=== PATIENT | male | born 1930 | race Caucasian/White ===

== ENCOUNTER → 2016-08-31 | Outpatient (CLI) | payer OTHER, MEDICARE | LOC: SBRMNEURO 20:00 | PROVIDERS: ATTEND Physician Assistant Medical | DX: G47.39 Other sleep apnea (principal); G47.33 Obstructive sleep apnea (adult) (pediatric) ==

== ENCOUNTER 2018-09-24 18:09 | Inpatient (IN) | payer OTHER, MEDICARE ==
[2018-09-24 19:12] LABS: PLATELET COUNT 203 10^3/uL (150-400)
--- NOTE | 2018-09-24 19:15 | EDPHY ---
H & P Stated Complaint: abnormal lumbar MRI sent by [facility] Time Seen by Provider: 09/24/18 18:28 HPI/ROS: CHIEF COMPLAINT: Back pain, abnormal MRI HISTORY OF PRESENT ILLNESS: This is an 87-year-old male referred to the emergency department by his oncologist, Dr. Cedeño. Patient has a h/o prostate cancer, s/p prostatectomy. He had been receiving Lupron injections, more recently has been on Xtandi. He has been experiencing low back pain with radiation to his left leg for the past month. Physical therapy has not helped. There has been a question of a left hip metastasis based on bone scan result. MRI done today shows signs of discitis, osteomyelitis, and psoas abscess-- prompting referral to ED. Patient denies trauma, fever, new weakness, new numbness, bowel or bladder problems. REVIEW OF SYSTEMS: A ten system review of systems was performed and is negative with the exception of the items mentioned in the HPI. Past medical history: 1. Prostate cancer 2. Melanoma 3. CHF with EF 60-65% 4. Htn 5. Hyperlipidemia 6. TISHA 7. Gout Past surgical history: 1. Prostatectomy 2. Left leg surgery for infection 3. T & A 4. Skin cancer surgery Family history: Noncontributory Social history: Here with family. Indepent in ADLs. Former smoker, quit years ago. Drinks one martini daily. General Appearance: Alert. Vital signs reviewed. Eyes: Pupils equal and round, no conjunctival injection, no discharge. Anicteric. ENT, Mouth: Mucous membranes are moist, no oropharyngeal erythema or edema. Neck: No lymphadenopathy, supple. Respiratory: Lungs are clear to auscultation; no wheezes, rales, or rhonchi. Cardiovascular: Regular rate and rhythm; no murmur, rub, or gallop. Gastrointestinal: Abdomen is soft and nontender, no masses or organomegaly, bowel sounds normal. Skin: Warm and dry, no rashes on exposed skin, normal color. Back: Nontender to palpation over the thoracolumbar spine. No CVAT. Extremities: No lower extremity edema, no calf tenderness or swelling. Neurological: Alert and oriented. Moving all four extremities easily and equally. Strength is 5 over 5 bilaterally with testing of all major motor groups. Sensation is intact to light touch over all 4 extremities. Deep tendon reflexes are 2+ in the biceps and knees bilaterally. Psychiatric: Normal affect. - Personal History Current Tetanus/Diphtheria Vaccine: Yes Current Tetanus Diphtheria and Acellular Pertussis (TDAP): Yes - Medical/Surgical History Hx Asthma: No Hx Chronic Respiratory Disease: No Hx Diabetes: No Hx Cardiac Disease: Yes Hx Renal Disease: No Hx Cirrhosis: No Hx Alcoholism: No Hx HIV/AIDS: No Hx Splenectomy or Spleen Trauma: No Other PMH: HTN, HIGH CHOLESTROL, CARDIAC STENT, PROSTATE CA SURG, GOUT, TONSILECTOMY, HERNIA - Social History Smoking Status: Former smoker Constitutional: Initial Vital Signs Temperature (C) 36.8 C 09/24/18 18:18 Heart Rate 73 09/24/18 18:18 Respiratory Rate 16 09/24/18 18:18 Blood Pressure 162/108 H 09/24/18 18:18 O2 Sat (%) 92 09/24/18 18:18 O2 Delivery Mode Room Air Allergies/Adverse Reactions: No Known Allergies Allergy (Verified 09/24/18 18:16) Home Medications: Medication Instructions Recorded Aspirin [Aspir 81] 81 mg PO DAILY 07/24/12 Atorvastatin Calcium [Lipitor 20 20 mg PO HS 09/24/18 mg (*)] Doxazosin Mesylate 2 mg PO HS 09/24/18 Furosemide [Lasix 20 MG (*)] 20 mg PO DAILY 09/24/18 Irbesartan [Avapro] 300 mg PO DAILY 09/24/18 Metoprolol Tartrate [Lopressor 50 50 mg PO BID 09/24/18 mg (*)] Spironolactone [Aldactone 25 MG 25 mg PO DAILY 09/24/18 (*)] Verapamil ER [Calan SR/ER 180MG 180 mg PO BID 09/24/18 (*)] Xtandi 160 mg PO DAILY 09/24/18 Medical Decision Making ED Course/Re-evaluation: Patient's lumbar MRI done at [facility]. I spoke with , neurosurgery. He was able to view the outside films. He recommends biopsy/drainage of psoas abscess--no neurosurgical intervention. Initially, it was thought that patient might have matastatic disease causing his back pain and radicular symptoms; however, this appears to be an infectious problem. Unclear why this patient would have discitis/abscess. He will be admitted to hospitalist service. IR to be consulted for abscess drainage, culture and gram stain. Will hold off on antibiotics for now--patient without fever or overt signs of infection. Antibiotic choice can hopefully be guided by results of gram stain/culture. Hospitalist service will consult ID and IR. Patient's radicular pain not a current concern. As long as he avoids certain positions and movements, he is comfortable. He was initially hypertensive--has not had today's antihypertensive medications. Differential Diagnosis: Back pain including but not limited to infection, malignancy/spinal cord compression, muscular pain, herniated disc, spine fracture, intra-abdominal causes and urinary tract infection. - Data Points Laboratory Results: Laboratory Results 09/24/18 19:00 09/24/18 19:00 Medications Given: Hydrocodone Bitart/Acetaminophen ([place] 5/325) 1 - 2 tab PO Q4HRS PRN PRN Reason: Pain, Moderate Able to Take PO Stop: 10/04/18 19:50 Last Admin: 09/29/18 07:52 Dose: 2 tab Atorvastatin Calcium (Lipitor) 20 mg PO HS SERGIO Stop: 03/24/19 20:59 Last Admin: 09/28/18 21:29 Dose: 20 mg Diphenhydramine HCl (Benadryl) 25 - 50 mg PO Q6HRS PRN PRN Reason: Itching Stop: 03/27/19 11:39 Last Admin: 09/29/18 01:56 Dose: 25 mg Doxazosin Mesylate (Cardura) 2 mg PO HS SERGIO Stop: 03/23/19 22:29 Last Admin: 09/28/18 21:30 Dose: 2 mg Furosemide (Lasix) 20 mg PO DAILY SERGIO Stop: 03/24/19 08:59 Last Admin: 09/29/18 07:54 Dose: 20 mg Cefepime HCl 2 gm/ Sodium (Chloride) 100 mls @ 200 mls/hr IV Q12HRS SERGIO PRN Reason: Protocol Stop: 10/28/18 15:59 Last Admin: 09/29/18 08:36 Dose: 100 mls Irbesartan (Avapro) 300 mg PO DAILY SERGIO Stop: 03/24/19 08:59 Last Admin: 09/29/18 07:54 Dose: 300 mg Methocarbamol (Robaxin) 750 mg PO QID PRN PRN Reason: Spasms Stop: 03/27/19 11:39 Last Admin: 09/29/18 07:49 Dose: 750 mg Metoprolol Tartrate (Lopressor) 50 mg PO BID SERGIO Stop: 03/23/19 21:59 Last Admin: 09/29/18 07:55 Dose: 50 mg Miscellaneous Medication (Xtandi) 160 mg PO DAILY SERGIO Stop: 03/24/19 08:59 Last Admin: 09/29/18 10:42 Dose: 160 mg Miscellaneous Medication (Non-Formulary) 1 ea PO DAILY AT 6PM SERGIO Stop: 03/24/19 17:59 Last Admin: 09/28/18 21:32 Dose: Not Given Ondansetron HCl (Zofran) 4 mg IVP Q4HRS PRN PRN Reason: Nausea/Vomiting, Can't Take PO Stop: 03/23/19 19:50 Last Admin: 09/29/18 08:02 Dose: 4 mg Ondansetron HCl (Zofran Odt) 4 mg PO Q4HRS PRN PRN Reason: Nausea/Vomiting, Use 1st Stop: 03/23/19 19:50 Last Admin: 09/29/18 03:33 Dose: 4 mg Oxycodone HCl (Oxycodone Ir) 5 - 10 mg PO Q3HRS PRN PRN Reason: Pain, Severe Able to Take PO Stop: 10/04/18 19:50 Last Admin: 09/29/18 01:08 Dose: 5 mg Senna/Docusate Sodium (Senokot-S) 1 - 2 tab PO BID SERGIO PRN Reason: Protocol Stop: 03/27/19 20:59 Last Admin: 09/29/18 07:54 Dose: 2 tab Spironolactone (Aldactone) 25 mg PO DAILY SERGIO Stop: 03/24/19 08:59 Last Admin: 09/29/18 07:55 Dose: 25 mg Verapamil HCl (Calan Sr) 180 mg PO BID [facility] Stop: 03/23/19 21:59 Last Admin: 09/29/18 07:54 Dose: 180 mg Discontinued Medications Bacitracin (Bacitracin Syringe) Confirm Administered Dose 100,000 units IRR .STK -MED ONE Stop: 09/28/18 06:58 Last Admin: 09/28/18 07:00 Dose: 100,000 units Bupivacaine HCl (Sensorcaine 0.25% Sdv) Confirm Administered Dose 60 ml .ROUTE .STK-MED ONE Stop: 09/28/18 06:58 Last Admin: 09/28/18 07:00 Dose: 40 ml Cefazolin Sodium (Ancef) Confirm Administered Dose 1 gm .ROUTE .STK-MED ONE Stop: 09/28/18 07:43 Last Admin: 09/28/18 09:36 Dose: 1 gm Cefazolin Sodium (Ancef) Confirm Administered Dose 1 gm .ROUTE .STK-MED ONE Stop: 09/28/18 07:43 Last Admin: 09/28/18 09:36 Dose: 1 gm Chlorhexidine Gluconate (Hibiclens) Confirm Administered Dose 1 btl TP .STK-MED ONE Stop: 09/28/18 06:57 Last Admin: 09/28/18 07:00 Dose: 1 btl Epinephrine HCl (Epinephrine) Confirm Administered Dose 1 mg .ROUTE .STK-MED ONE Stop: 09/28/18 06:58 Last Admin: 09/28/18 07:00 Dose: 0.3 mg Fentanyl (Sublimaze) 0 mcg IVP ONCALL PRN PRN Reason: Per provider during procedure Stop: 09/25/18 16:10 Last Admin: 09/25/18 16:41 Dose: 100 mcg Fibrinogen/Thrombin (Surgiflo Matrix Kit With Thrombin) Confirm Administered Dose 8 ml TP .STK-MED ONE Stop: 09/28/18 06:57 Last Admin: 09/28/18 09:17 Dose: 8 ml Fibrinogen/Thrombin (Surgiflo Matrix Kit With Thrombin) Confirm Administered Dose 8 ml TP .STK-MED ONE Stop: 09/28/18 09:59 Last Admin: 09/28/18 10:11 Dose: Not Given Fibrinogen/Thrombin (Surgiflo Matrix Kit With Thrombin) Confirm Administered Dose 8 ml TP .STK-MED ONE Stop: 09/28/18 10:02 Last Admin: 09/28/18 10:11 Dose: 8 ml Lactated Ringer's (Lr) 1,000 mls @ 0 mls/hr IV ONCE ONE PRN Reason: Per Protocol Stop: 09/28/18 06:24 Last Admin: 09/28/18 14:40 Dose: Not Given Cefazolin Sodium/Dextrose (Ancef) 100 mls @ 200 mls/hr IV Q8H SERGIO Stop: 10/28/18 15:29 Last Admin: 09/28/18 17:04 Dose: Not Given Methylprednisolone Acetate (Depo-Medrol) Confirm Administered Dose 40 mg .ROUTE .STK-MED ONE Stop: 09/28/18 06:58 Last Admin: 09/28/18 10:11 Dose: Not Given Midazolam HCl (Versed) 0 mg IVP ONCALL PRN PRN Reason: Per provider during procedure Stop: 09/25/18 16:10 Last Admin: 09/25/18 16:41 Dose: 0.5 mg Potassium Chloride (Klor-Con) 20 meq PO ONCE ONE Stop: 09/26/18 08:45 Last Admin: 09/26/18 10:13 Dose: 20 meq Thrombin (Thrombin-Jmi) Confirm Administered Dose 5,000 unit TP .STK-MED ONE Stop: 09/28/18 06:58 Last Admin: 09/28/18 07:00 Dose: 5,000 unit Departure - Departure Disposition: [facility] Inpatient Acute Clinical Impression: Psoas abscess Diskitis Qualifiers: Spinal region: lumbar Qualified Code(s): M46.46 - Discitis, unspecified, lumbar region Condition: Fair
[2018-09-24] MEDS ORDERED: HYDROmorphONE/DILAUDID 1 MG/ML INJ IVP PRN (19:51)
[2018-09-24] MEDS ORDERED: ACETAMINOPHEN 325 MG TAB PO PRN (19:51)
[2018-09-24] MEDS ORDERED: ONDANSETRON 4 MG/2 ML VIAL IVP PRN (19:51)
[2018-09-24] MEDS ORDERED: oxyCODONE IR 5 MG TAB PO PRN (19:51)
[2018-09-24] MEDS ORDERED: ONDANSETRON DISINTEGRATING 4 MG TAB PO PRN (19:51)
[2018-09-24] MEDS ORDERED: PROMETHAZINE HCL 25 MG/ML INJ IVP PRN (19:51)
--- NOTE | 2018-09-24 21:57 | PDGENHP ---
History and Physical - Chief Complaint leg/back pain - History of Present Illness 87 yo M with PMH of prostate cancer s/p prostatectomy presenting at the recommendation of his oncologist for further evaluation of abnormal MRI. Patient has been dealing with low back pain with radiation to his left leg for around the last month. He had been undergoing PT without much change in his symptoms and more recently had an MRI ordered by Dr. Cedeño his oncologist to rule out possible metastatic disease. This came back concerning for diskitis, osteomyelitis and psoas abscess and oncology recommended he come to the ER for further evaluation. Neurosurgery was consulted by ER and was able to review the outside films and recommended abscess drainage and culture prior to initiation of antibiotics and did not feel that surgery was required at this point. Patient notes that other than pain he has no other symptoms-specifically denies fever or chills, no numbness or weakness, no loss of bowel or bladder function. He did have surgery in his left lower leg approximately two years ago that was complicated by post operative infection but no recent infections or other changes in his health prior to this. History Information - Allergies/Home Medication List Allergies/Adverse Reactions: No Known Allergies Allergy (Verified 09/24/18 18:16) Home Medications: Aspirin [Aspir 81] 81 mg PO DAILY 07/24/12 [Last Taken 09/24/18] Atorvastatin Calcium [Lipitor 20 mg (*)] 20 mg PO HS 09/24/18 [Last Taken ] Doxazosin Mesylate 2 mg PO HS 09/24/18 [Last Taken 09/23/18] Furosemide [Lasix 20 MG (*)] 20 mg PO DAILY 09/24/18 [Last Taken 09/24/18] Irbesartan [Avapro] 300 mg PO DAILY 09/24/18 [Last Taken 09/24/18] Metoprolol Tartrate [Lopressor 50 mg (*)] 50 mg PO BID 09/24/18 [Last Taken 06/04] Spironolactone [Aldactone 25 MG (*)] 25 mg PO DAILY 09/24/18 [Last Taken ] Verapamil ER [Calan SR/ER 180MG (*)] 180 mg PO BID 09/24/18 [Last Taken 09/24/18 ] Xtandi 160 mg PO DAILY 09/24/18 [Last Taken 09/24/18] I have personally reviewed and updated: family history, medical history, social history, surgical history - Past Medical History coronary artery disease, cancer (prostate cancer, melanoma), CHF (EF of 60-65%) , hypertension, hyperlipidemia Additional medical history: moderate to severe pulmonary htn. TISHA--compliant with cpap. moderate TR. gout - Surgical History Reports: cancer surgery (prostatectomy) Additional surgical history: leg surgery. skin surgery. tonsillectomy - Family History Positive for: non-pertinent - Social History Smoking Status: Former smoker Alcohol Use: Other (daily martini) Drug Use: None Additional social history: lives independently Review of Systems Review of Systems: ROS: 10pt was reviewed & negative except for what was stated in HPI & below Physical Exam Physical Exam: Temp Pulse Resp BP Pulse Ox 36.9 C 75 19 200/97 H 92 09/24/18 20:29 09/24/18 20:29 09/24/18 20:29 09/24/18 20:29 09/24/18 20:29 Constitutional: no apparent distress, obese Eyes: PERRL, anicteric sclera Ears, Nose, Mouth, Throat: moist mucous membranes, hearing normal Cardiovascular: regular rate and rhythym, no murmur, rub, or gallop, edema Respiratory: no respiratory distress, no rales or rhonchi Gastrointestinal: normoactive bowel sounds, soft, non-tender abdomen Genitourinary: no bladder tenderness Skin: warm, normal color Musculoskeletal: full muscle strength, No asymmetric calves Neurologic: AAOx3 Psychiatric: interacting appropriately, not anxious, not encephalopathic Lab Data & Imaging Review 09/24/18 19:00 09/24/18 19:00 WBC 7.68 10^3/uL (3.80-9.50) 09/24/18 19:00 RBC 3.67 10^6/uL (4.40-6.38) L 09/24/18 19:00 Hgb 11.7 g/dL (13.7-17.5) L 09/24/18 19:00 Hct 34.1 % (40.0-51.0) L 09/24/18 19:00 MCV 92.9 fL (81.5-99.8) 09/24/18 19:00 MCH 31.9 pg (27.9-34.1) 09/24/18 19:00 MCHC 34.3 g/dL (32.4-36.7) 09/24/18 19:00 RDW 13.5 % (11.5-15.2) 09/24/18 19:00 Plt Count 203 10^3/uL (150-400) 09/24/18 19:00 MPV 10.3 fL (8.7-11.7) 09/24/18 19:00 Neut % (Auto) 68.9 % (39.3-74.2) 09/24/18 19:00 Lymph % (Auto) 18.0 % (15.0-45.0) 09/24/18 19:00 Robertson % (Auto) 8.9 % (4.5-13.0) 09/24/18 19:00 Eos % (Auto) 3.3 % (0.6-7.6) 09/24/18 19:00 Baso % (Auto) 0.5 % (0.3-1.7) 09/24/18 19:00 Nucleat RBC Rel Count 0.0 % (0.0-0.2) 09/24/18 19:00 Absolute Neuts (auto) 5.30 10^3/uL (1.70-6.50) 09/24/18 19:00 Absolute Lymphs (auto) 1.38 10^3/uL (1.00-3.00) 09/24/18 19:00 Absolute Monos (auto) 0.68 10^3/uL (0.30-0.80) 09/24/18 19:00 Absolute Eos (auto) 0.25 10^3/uL (0.03-0.40) 09/24/18 19:00 Absolute Basos (auto) 0.04 10^3/uL (0.02-0.10) 09/24/18 19:00 Absolute Nucleated RBC 0.00 10^3/uL (0-0.01) 09/24/18 19:00 Immature Gran % 0.4 % (0.0-1.1) 09/24/18 19:00 Immature Gran # 0.03 10^3/uL (0.00-0.10) 09/24/18 19:00 ESR 12 MM/HR (0-20) 09/24/18 19:00 Sodium 135 mEq/L (135-145) 09/24/18 19:00 Potassium 3.4 mEq/L (3.5-5.2) L 09/24/18 19:00 Chloride 105 mEq/L (97-110) 09/24/18 19:00 Carbon Dioxide 24 mEq/l (22-31) 09/24/18 19:00 Anion Gap 6 mEq/L (6-14) 09/24/18 19:00 BUN 16 mg/dL (7-23) 09/24/18 19:00 Creatinine 0.5 mg/dL (0.7-1.3) L 09/24/18 19:00 Estimated GFR > 60 09/24/18 19:00 Glucose 100 mg/dL (70-100) 09/24/18:00 Calcium 9.1 mg/dL (8.5-10.4) 09/24/18 19:00 C-Reactive Protein 9.4 mg/L (<10.0) 09/24/18 19:00 Assessment & Plan Assessment: Diskitis (Acute) 87 yo M with PMH of CAD, prostate cancer presenting with leg/back pain and found to have diskitis, osteomyelitis of lumbar spine as well as psoas abscess # lumbar diskitis/osteomyelitis/psoas abscess: appreciate Dr. Cunha of [facility] [place] input, does not feel that surgery is currently indicated, will plan to have IR drain psoas abscess for gram stain and culture. Patient is HD stable, non toxic appearing and not septic, so ok to hold off on abx pending obtaining cultures for now. Will get echo as unclear etiology for developing diskitis, ID consulted for am. # radicular pain: 2/2 above, pain is relatively well controlled other than with particular movements, pt/ot to be involved # prostate cancer: with initial concerns that this represented metastatic disease which is not the case, patient s/p prostatectomy and lupron and now on xtandi, followed by Dr. Cedeño # CAD: without c/o chest pain, will get ecg and continue op medications # moderate to severe pulm htn: with underlying tisha that has been treated with cpap, patient followed by cardiology at [facility] # tisha: will resume cpap # htn: continue his op medications, bp has been high here likely due to patient not taking his medications today, will resume and monitor # chf: with preserved EF, no evidence of decompensation currently # etoh use: patient notes that he drinks a martini nightly and had concerns about being hospitalized without having that, will continue nightly martini, family to bring in # IP status, high risk, will require > 48 hours stay for eval/mgmt of above # Patient new to my care. Old records reviewed and summarized as above. Care plan reviewed with ER doctor and further hx obtained from patients family present at bedside.
[2018-09-24] MEDS ORDERED: IRBESARTAN 150 MG TAB PO SCH (22:00)
[2018-09-24] MEDS: METOPROLOL TARTRATE 50 MG TAB PO SCH (22:15)
[2018-09-24] MEDS: VERAPAMIL ER 180 MG TAB PO SCH (22:17)
[2018-09-24] MEDS: DOXAZOSIN MESYLATE 1 MG TAB PO SCH (22:48)
[2018-09-25] MEDS: HYDROCODONE/APAP 5/325 TAB PO PRN (04:42)
[2018-09-25 05:18] LABS: PLATELET COUNT 194 10^3/uL (150-400)
[2018-09-25] MEDS: METOPROLOL TARTRATE 50 MG TAB PO SCH ×2 (08:04→20:44)
[2018-09-25] MEDS: IRBESARTAN 150 MG TAB PO SCH (08:07)
[2018-09-25] MEDS: SPIRONOLACTONE 25 MG TAB PO SCH (08:08)
[2018-09-25] MEDS: FUROSEMIDE 20 MG TAB PO SCH (08:08)
--- NOTE | 2018-09-25 09:51 | PDMN ---
Medical Necessity Medical necessity: Pt meets IP criteria per MD & MCG M-600; est los >2 mn for osteomyelitis of lumbar spine, psoas abscess & lumbar diskitis; requiring further workup/monitoring, IR consult w/abscess drainage & ID consult; comorbid advanced age, prostate cancer s/p prostatectomy, pulmonary htn, CAD, CHF; per order & H&P 09/24/18
[2018-09-25] MEDS: VERAPAMIL ER 180 MG TAB PO SCH ×2 (10:59→20:45)
--- NOTE | 2018-09-25 11:50 | ASMTCMCOM ---
CM Note CM Note Notes: Pt is a 87 y/o man admitted for leg and back pain. Pt has prostate cancer and currently getting radiation on his left leg last month. Therapies have been ordered and awaiting recommendations. Needs are TBD at this time. ID is consulting. CM to follow. Plan: TBD Date Signed: 09/25/2018 11:48 AM Electronically Signed By:KISHOR Berman
--- NOTE | 2018-09-25 12:26 | GCON ---
[f rep st] CONSULTATION INPATIENT ONCOLOGY CONSULTATION DATE OF CONSULTATION: 09/25/2018 REFERRING PHYSICIAN: Sophia Stern MD OUTPATIENT ONCOLOGIST: Noel Cedeño MD. REASON FOR CONSULTATION: History of metastatic prostate cancer. HISTORY OF PRESENT ILLNESS: The patient is an 87-year-old man with a history of prostate cancer. He has received care elsewhere in the past and only recently established oncologic care with our practi . He apparently was diagnosed in 1991 and was treated with a radical prostatectomy followed by rad iation therapy. Around that time, his PSA began to rise, and he was started on Lupron. It sounds li ke he has been on and off Lupron since that time for several decades. A year or two ago, he was star елена on enzalutamide for a rising PSA. Most recently, his PSA was 5.9. In July 2016, it was 3.7. A bone scan several months ago showed potential uptake at T4 and T5 without a CT correlate. The patient has been complaining of some left hip and thigh pain. Dr. Cedeño got an MRI. This did no t show evidence of metastatic disease, but did show what appeared to be diskitis, osteomyelitis, and a potential left psoas abscess. The patient was admitted for further management. He is scheduled fo r an IR-guided drainage. He denies fevers or chills. PAST MEDICAL HISTORY: 1. Prostate cancer as noted above. 2. Coronary artery disease. 3. Hypertension. CURRENT MEDICATIONS: Include [place], Lipitor, Cardura, Lasix, Avapro, Lopressor, spironolactone, and verapamil. ALLERGIES: He has no known drug allergies. FAMILY HISTORY: Noncontributory. SOCIAL HISTORY: Nonsmoker and nondrinker. REVIEW OF SYSTEMS: Other than pertinent positives mentioned in HPI, a 14-point review of systems is negative. PHYSICAL EXAMINATION: VITAL SIGNS: His temperature was 36.4, blood pressure 163/90, heart rate 59, and oxygen saturation 98% on room air. GENERAL: He was an elderly man in no acute distress. HEENT: Sclerae anicteric. Oropharynx was clear. NECK: Supple without lymphadenopathy. LUNGS: Clear to auscultation bilaterally. CARDIAC: Regular rate and rhythm. No murmurs, gallops, or rubs. ABDOME N: Normoactive bowel sounds. Nontender and nondistended. EXTREMITIES: Without edema. NEUROLOGICA L: He was alert and oriented x3. Strength and sensation were intact. Gait was not tested. LABORATORY DATA: White count 6.82, hemoglobin 11, and platelets 194. Basic metabolic panel was norm al. IMPRESSION: This is an 87-year-old man with a history of prostate cancer. He does not appear to hav e any overt evidence of metastatic disease and I think would essentially be considered to have a PSA only recurrence. He is now admitted with a separate problem, what appears to be a psoas abscess. RECOMMENDATIONS: 1. Continue with management of the abscess as you are. This is very unlikely to be related to his c ancer or its treatment. 2. Reasonable to hold the enzalutamide while he is in the hospital, though, if it is continued, this should not interfere with his other treatment. 3. Once his issues resolve, we can discuss resuming the enzalutamide or other aspects of his oncolog ic care. /[id number]/MODL
--- NOTE | 2018-09-25 12:28 | HOSPPROG ---
Hospitalist Progress Note Assessment/Plan: 87 yo M with PMH of CAD, prostate cancer presenting with leg/back pain and found to have diskitis, osteomyelitis of lumbar spine. First encounter, chart reviewed. D/W Dr David. # lumbar diskitis/osteomyelitis: -no drainable abscess -appreciate Dr. Cunha of [facility] [place] input -no surgery is currently indicated -will plan to have IR sample disk space - appreciate ID consult -hold off on abx pending culture -Will get echo as unclear etiology for developing diskitis # radicular pain: -2/2 above, -pain is relatively well controlled other than with particular movements, -pt/ot to be involved # prostate cancer: -not metastatic disease -patient s/p prostatectomy and lupron and now on xtandi, -followed by Dr. Cedeño # CAD: without c/o chest pain # moderate to severe pulm htn: with underlying bipin that has been treated with cpap, patient followed by cardiology at [facility] # bipin: will resume cpap # htn: continue his op medications -bp has been high here likely due to patient not taking his medications -will resume and monitor # chf: with preserved EF, no evidence of decompensation currently # etoh use: -patient notes that he drinks a martini nightly and had concerns about being hospitalized without having that, -will continue nightly martini, family to bring in # IP status, high risk, will require > 48 hours stay for eval/mgmt of above Subjective: Feeling ok. Up at edge of bed. Some pain. Objective: Vital Signs Temp Pulse Resp BP Pulse Ox 36.4 C 59 L 18 163/90 H 98 09/25/18 11:46 09/25/18 11:46 09/25/18 11:46 09/25/18 11:46 09/25/18 11:46 Laboratory Results 09/25/18 04:19 09/25/18 04:19 - Physical Exam Constitutional: no apparent distress, appears nourished, No cachectic Eyes: PERRL, anicteric sclera, EOMI Ears, Nose, Mouth, Throat: moist mucous membranes, hearing normal, ears appear normal Cardiovascular: regular rate and rhythym, No JVD, No edema Respiratory: no respiratory distress, no rales or rhonchi, reduced air movement Gastrointestinal: normoactive bowel sounds, No tenderness, No ascites Skin: warm, normal color, No mottled Musculoskeletal: no joint effusions, pain with ROM, generalized weakness Neurologic: AAOx3 Psychiatric: interacting appropriately, not anxious, not encephalopathic, thought process linear ICD10 Worksheet Patient Problems: Problems Problem Status Onset Diskitis Acute
[2018-09-25 13:17] LABS: INR 0.98 (0.83-1.16); PROTIME(PATIENT) 12.6 SEC (12.0-15.0)
--- NOTE | 2018-09-25 14:16 | GCON ---
[f rep st] CONSULTATION DATE OF CONSULTATION: 09/25/2018 CHIEF COMPLAINT: Low back and left leg pain. REASON FOR CONSULTATION: Osteomyelitis/diskitis at L3-4 and left psoas muscle abscess. HISTORY OF PRESENT ILLNESS: The patient is an 87-year-old gentleman who has a past medical history of prostate cancer who has been having low back and left leg pain. His daughter is at the bedside today. He states he had first onset of back pain with radiation down the back of his left leg approximately 2 months ago. His primary care doctor diagnosed this as sciatica and had been treating it with nonsteroidal antiinflammatory medications and muscle relaxants. The pain did resolve; however, it returned again approximately 1 month ago. Since that time, he has continued taking NSAIDs and muscle relaxants , using CBD oil, and has also been participating in a physical therapy program; however, his pain has not been improving. He also had a bone scan recently that was suspicious for tumor in the T11 and L1 vertebral bodies and in the sacrum. For these reasons, his oncologist ordered an MRI scan of his spine, and this demonstrated suspicion of infection at L3-4 and left psoas abscess. He describes the pain as a knot in the left sided low back and buttock that radiates down the lateral and anterior thigh to the knee. He said it rarely radiates below the knee. He denies any numb, tingling, or other sensory changes in his left leg. He denies outright weakness or his leg giving out or falls, but he does have some fear that his leg will give out on him and cause him to fall. He denies any bowel or bladder symptoms or any symptoms in his right leg. He also denies any fevers, chills, sweats, or malaise. PAST MEDICAL HISTORY: 1. Coronary artery disease. 2. Prostate cancer. 3. Melanoma. 4. Chronic heart failure with ejection fraction of 60% to 65%. 5. Hypertension. 6. Hyperlipidemia. 7. Obstructive sleep apnea. 8. Gout. PAST SURGICAL HISTORY: 1. Prostatectomy. 2. Skin cancer surgery. 3. Tonsillectomy. 4. Left ankle fracture surgery. FAMILY HISTORY: There is no family history of neurologic disease. SOCIAL HISTORY: Patient is a former smoker, but denies any current tobacco use. He uses alcohol on a daily basis, usually one drink per day. He denies any recreational drug use. He lives independently in [place], [place]. He is a retired automotive hardware engineer. He enjoys playing golf. OUTPATIENT MEDICATIONS: 1. Aspirin 81 mg p.o. daily. 2. Lipitor 20 mg p.o. daily. 3. Doxazosin 2 mg p.o. daily. 4. Lasix 20 mg p.o. daily. 5. Avapro 300 mg p.o. daily. 6. Metoprolol 50 mg p.o. b.i.d. 7. Spironolactone 25 mg p.o. daily. 8. Verapamil ER 180 mg p.o. b.i.d. 9. Xtandi 160 mg p.o. daily. ALLERGIES: No known drug allergies. REVIEW OF SYSTEMS: GENERAL: Patient denies any malaise or any change from his recent health. HEAD, EYES, EARS, NOSE AND THROAT: He denies any headaches, vision changes, rhinorrhea or epistaxis, hearing loss, tinnitus, difficulty swallowing, or dry mouth. PULMONARY: He denies any shortness of breath or wheezing. CARDIOVASCULAR: He denies any chest pain, dyspnea on exertion, or swelling in his extremities. GI: He denies any nausea, vomiting, diarrhea, or constipation. GENITOURINARY: He denies any dysuria or incontinence. HEMATOLOGIC: He denies any history of easy bruising or bleeding. IMMUNOLOGIC: He denies any fevers, chills, night sweats. MUSCULOSKELETAL: He denies any chronic pain symptoms. ENDOCRINOLOGIC: He denies any excessive thirst or urination or any temperature intolerance. NEUROLOGIC: As in History of Present Illness. PSYCHIATRIC: He denies any history of depression or anxiety. PHYSICAL EXAMINATION: GENERAL: He is a well-developed man who appears his recorded age. He has central obesity. He is in no acute distress. HEAD: Normocephalic, atraumatic. EYES: His conjunctivae are clear and sclerae are nonicteric. EARS: His hearing is grossly intact. He has no otorrhea. NOSE, MOUTH, THROAT: Mucous membranes are moist. Dentition is grossly intact. CARDIOVASCULAR: He has a regular rate and rhythm. He has no peripheral edema. RESPIRATORY: He has normal work of breathing and symmetric chest wall excursions. ABDOMEN: Soft, nontender, and nondistended. SKIN: Warm and has normal turgor. MUSCULOSKELETAL: He has no outward signs of trauma or deformity. He is able to move all extremities. NEUROLOGIC: He is asleep but easily arousable and then awake, alert, and oriented x4. His speech is fluent, and he follows commands without difficulty. CRANIAL NERVES: Pupils are equal, round, and reactive to light. Extraocular muscle movements are intact. Facial sensation and movements are full and intact. Hearing is grossly intact. He has no dysarthria. Palate elevates symmetrically. Bilateral shoulder shrug is full, symmetric strength, and tongue protrudes in the midline. STRENGTH: He has 5/5 strength in all muscle groups in both arms and both legs, including bilateral deltoids, biceps, triceps, wrist extensors, interossei, bending machine set up operator, hip flexors, knee extensors, knee flexors, ankle dorsiflexors, ankle plantarflexors , and extensor hallucis longus. SENSATION: Grossly intact to light touch throughout the body. REFLEXES: 1/4 in right patella, trace in left patella; absent in bilateral Achilles. He has negative Mijares sign and no clonus at the ankles. COORDINATION: He has no tremors or abnormal movements. PSYCHIATRIC: He has appropriate affect. LABORATORY DATA: He has had basic metabolic panel and CBC performed this morning. These are notable for mild anemia with a hemoglobin 11.0 and hematocrit 32.0, and mildly low potassium at 3.1. Otherwise, all other values are within normal range. He had a C-reactive protein and ESR drawn yesterday. These values were 9.4 and 12, respectively. IMAGING: As stated, patient had an MRI of the lumbar spine with and without contrast done at an outside hospital. This demonstrates contrast enhancement in the L3-4 disk space extending into the adjacent vertebral bodies. He also has enhancing material in the medial left psoas muscle. In addition to these findings suspicious for infection, he has degenerative stenosis with ligamentum flavum hypertrophy, worst at L3-4, but also moderately severe at L2-3. There are likely metastatic lesions within the T11 and L1 vertebral bodies consistent with the bone scan findings. There are no visible lesions or tumors within the sacrum. ASSESSMENT AND PLAN: The patient is an 87-year-old man who has no chronic low back complaints, who has now had low back pain with radicular symptoms for the past two months. There are no concerning findings on neurological examination, including no evidence of weakness or sensory loss. Imaging demonstrates evidence of L3-4 diskitis and abscess in the left psoas muscle, but also demonstrates what is likely a chronic degenerative spinal canal stenosis at L3- 4 and L2-3. Given the subacute history of symptoms, I favor that the infection is more likely cause of his current symptomatology; however, the stenosis may be contributing. At this point, I would recommend treating his infection, including placing a percutaneous drain in the left psoas muscle abscess, obtaining cultures, and then starting broad-spectrum antibiotics under the direction of Infectious Diseases. Depending on his pain control, gabapentin can be considered for better pain management if necessary. Otherwise, I would just continue nonsteroidal antiinflammatory medications and muscle relaxants. I also recommend continuing physical therapy. As his infection is treated, if his symptoms are not improving, then one to two-level lumbar decompression can be considered in the future; however, at this point, given the chances that it is not symptomatic and given an active infection, no immediate surgical intervention is recommended. The plan was discussed in detail with the patient and his daughter, and they understand and agree. Neurosurgery will follow at this time. Please call with any questions. /[id number]/MODL MTDD
[2018-09-25] MEDS ORDERED: NALOXONE HCL 0.4 MG/ML INJ IVP PRN (15:09)
[2018-09-25] MEDS ORDERED: FLUMAZENIL 0.5 MG/5 ML MDV IVP PRN (15:09)
[2018-09-25] MEDS ORDERED: MIDAZOLAM 2 MG/2 ML VIAL IVP PRN (15:09)
[2018-09-25] MEDS ORDERED: fentaNYL 100 MCG/2 ML INJ IVP PRN (15:09)
[2018-09-25] MEDS ORDERED: NS 1,000 ML IV SCH (15:15)
--- NOTE | 2018-09-25 15:56 | PDPROPOC ---
Sedation Plan of Care Sedation Plan of Care: vital signs stable, mental status noted, patient educated of risks, benefits, alternatives, patient can tolerate sedation ASA Classification: ASA 3 Planned drugs: midazolam Mallampati Score: Class 2 Mallampati Reference Image: Patient passed 3-3-2 rule?: Yes
--- NOTE | 2018-09-25 15:58 | PDHPUP ---
History & Physical Update H&P update statement: This history and physical update is based on an assessment of the patient which was completed after admission or registration (within 24 hours), but prior to the surgery/procedure. Disc aspiration L3-4 and/or bone biopsy for osteomyelitis/discitis H&P update: H&P reviewed & patient examined, no change in patient's condition since H&P completed
--- NOTE | 2018-09-25 17:16 | PDRADPN ---
Radiology Procedure Note Date of Procedure: 09/25/18 Radiologist: Jagjit Farias Anesthesia: IV Sedation Pre-op Diagnosis: Osteomyelits/Discitis Post-op Diagnosis: Osteomyelits/Discitis Indication: Osteomyelits/Discitis Procedure: Disc aspiration Finding(s): L3/4 disc aspiration yielding 0.5 mL fluid, sent to micro. Inf/Abcess present in the surg proc area at time of surgery?: No EBL: Minimal
[2018-09-25] MEDS ORDERED: VODKA 50 ML BOTTLE PO SCH (18:00)
[2018-09-25] MEDS: [UNRECOGNIZED DRUG - OTHER] PO SCH (18:35)
[2018-09-25] MEDS: ATORVASTATIN CALCIUM 20 MG TAB PO SCH (20:44)
[2018-09-25] MEDS: DOXAZOSIN MESYLATE 1 MG TAB PO SCH (20:44)
[2018-09-26] MEDS: HYDROCODONE/APAP 5/325 TAB PO PRN ×3 (03:08→21:15)
--- NOTE | 2018-09-26 06:35 | GCON ---
[f rep st] CONSULTATION DATE OF CONSULTATION: 09/25/2018 REFERRING PHYSICIAN: Sophia Stern MD REASON FOR CONSULTATION: L3-L4 osteomyelitis diskitis, query evaluation. HPI: This is an 87-year-old male who describes moderately progressive back pain starting toward the end of 2018, which more recently became severe left leg pain, left greater than right, which he characterizes as 7/10. He characterizes his back pain ranging from 1-2 out of 10 to 5-6 out of 10. Patient denies any focal lower extremity weakness, but does describe that this pain keeps him from doing some of his regular activities. He denies any fevers , chills, night sweats. No bowel or bladder symptom. He denies any specific recent injuries that precipitated his back pain. PAST MEDICAL HISTORY: Includes coronary artery disease, high blood pressure, hypertension, malignant melanoma, obstructive sleep apnea, osteoarthritis, and prostate cancer, which was diagnosed in 1991 for which he underwent a prostatectomy and 30 days of radiation. Initially received intermittent Lupron , then is now receiving in enzalutamide. PAST SURGICAL HISTORY: Cataract surgery, prostatectomy, coronary stents, tonsillectomy. FAMILY HISTORY: Positive for heart disease and hypertension. ALLERGIES: NKDA. 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 He has no known TB contacts, but he has visited multiple countries over the years including [place], [place], [place], [place], and [place]. He previously smoked a cigar and pipe, quit in 1985. He drinks a nightly martini. He has 3 children, 1 is present during history and physical exam. MEDICATIONS: Multiple. He has not received antibiotics recently. He is on aspirin, Lipitor, doxazosin, Lasix, Avapro, metoprolol, spironolactone, verapamil and . REVIEW OF SYSTEMS: A complete 10-point review of systems was performed and is negative except as mentioned in the HPI. Recent dental evaluation was reportedly negative. Patient denies any tooth pain or recent procedures. PHYSICAL EXAM: VITAL SIGNS: BP 149/76, afebrile, T 36.5, HR 72, RR 16, saturation 95% on 1 L. GENERAL: This is a nontoxic-appearing elderly male, no acute distress. He is moderately obese. HEENT: Patient is conversational. No acute distress. Fair dentition. CARDIOVASCULAR: Regular rate, no murmurs. CHEST: He had normal respiratory effort. Clear to auscultation bilaterally abdomen was soft, nontender. Bowel sounds are present. No mass. SKIN: No rashes. NEUROLOGICAL: He is alert and oriented x4. Fluent speech. Cranial nerves were grossly intact. His strength was intact. Reflex exam was deferred. LABORATORY: CRP 9.4, white count 6.8, hematocrit 32, platelets 194, 67% neutrophils. ESR is 12. Creatinine 0.5. Blood cultures were collected on admission and are pending at time of dictation. MRI of the lumbar spine was personally reviewed by me and select images were reviewed with L4-L5 disk space , inflammation demonstrated by contrast enhancement with obvious and also enhancement of adjacent vertebral bodies of L4-L5 previously thought ring- enhancing abscess of the left psoas muscle appears to be related to a bony spur. This was reviewed with Radiology by me. ASSESSMENT AND PLAN: An 87-year-old male with history of malignant melanoma, prostate cancer with increasing PSA and CAD, who had radiologic abnormalities noted with workup for elevated PSA and subsequently was found to have diskitis at L4-L5 with possible adjacent osteomyelitis that could account for his back pain, as there is significant cord compression at this level as well. Agree with prior providers assessment that this clinical appearance is most suggestive of infection, less so of malignancy. Due to unclear true psoas abscess, would recommend directing aspiration to disk to obtain additional cultures, as well as continue to monitor blood cultures. Discussed potential pathogens with patient and family at bedside, including Streptococcus, Staphylococcus, and less likely more smoldering pathogens such as tuberculosis in light of his international travel, as well as many years spent in [place], coccidiomycosis is within the realm of possibilities. At this point, would obtain additional samples and not start empiric IV antibiotic therapy at this point, would await additional information. Surprisingly markers such as white blood cell count, CRP, and ESR are not elevated, but sometimes this can be the case and patients who are aging may not develop as much of an inflammatory reaction to these slowly developing infections. Thank you for this consultation. Time spent was greater than 85 minutes greater than 20% of time spent with education and counseling of the family regarding differing modalities of aspiration and differential diagnosis of pathogens and reviewed radiologic findings. /[id number]/MODL MTDD
[2018-09-26] MEDS: VERAPAMIL ER 180 MG TAB PO SCH ×2 (07:32→21:08)
[2018-09-26] MEDS: METOPROLOL TARTRATE 50 MG TAB PO SCH ×2 (07:32→21:08)
[2018-09-26] MEDS: FUROSEMIDE 20 MG TAB PO SCH (07:33)
[2018-09-26] MEDS: SPIRONOLACTONE 25 MG TAB PO SCH (07:33)
[2018-09-26] MEDS: IRBESARTAN 150 MG TAB PO SCH (07:33)
--- NOTE | 2018-09-26 08:06 | SOAPPROG ---
SOAP Progress Note Assessment/Plan: Assessment: 87 yo M with presumed L3/4 discitis and psoas muscle abscess also with lumbar stenosis at L2/3, L3/4 Plan: neuro: stable neurogenic claudication likely from lumbar stenosis from L2-4, will follow for now and hopefully will not need surgery neurologically intact, will follow for now IR aspiration of disc, cultures pending, abx per ID PT/OT will follow for now Please call with neuro changes discussed with Dr Luis 09/26/18 08:01 09/26/18 08:04 Subjective: continued back pain, leg pain with walking that improves with rest, no weakness , ataxia or bowel/bladder changes. Objective: Vital Signs Temp Pulse Resp BP Pulse Ox 36.6 C 66 17 159/76 H 94 09/26/18 07:29 09/26/18 07:29 09/26/18 07:29 09/26/18 07:29 09/26/18 07:29 Microbiology 09/25/18 17:11 Gram Stain - Final Back - Aspirate 09/25/18 17:11 Mycobacterial Smear (MELANIE) - Final Back - Aspirate Mycobacterial Culture - Final Laboratory Results 09/25/18 04:19 09/25/18 04:19 09/25/18 09/26/18 09/27/18 05:59 05:59 05:59 Intake Total 500 Balance 500 PT 12.6 SEC (12.0-15.0) 09/25/18 12:45 INR 0.98 (0.83-1.16) 09/25/18 12:45 AAOx4, +FC PERRL, EOMI, no facial droop 5/5 + light touch ICD10 Worksheet Patient Problems: Problems Problem Status Onset Diskitis Acute
--- NOTE | 2018-09-26 08:38 | HOSPPROG ---
Hospitalist Progress Note Assessment/Plan: 87 yo M with PMH of CAD, prostate cancer presenting with leg/back pain and found to have diskitis, osteomyelitis of lumbar spine. First encounter, chart reviewed. 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 Subjective: Al has some radicular pain that extends down his left leg. Objective: Vital Signs Temp Pulse Resp BP Pulse Ox 36.6 C 66 17 159/76 H 94 09/26/18 07:29 09/26/18 07:29 09/26/18 07:29 09/26/18 07:29 09/26/18 07:29 Microbiology 09/25/18 17:11 Gram Stain - Final Back - Aspirate 09/25/18 17:11 Mycobacterial Smear (MELANIE) - Final Back - Aspirate Mycobacterial Culture - Final Laboratory Results 09/25/18 04:19 09/25/18 04:19 09/25/18 09/26/18 09/27/18 05:59 05:59 05:59 Intake Total 500 Balance 500 PT 12.6 SEC (12.0-15.0) 09/25/18 12:45 INR 0.98 (0.83-1.16) 09/25/18 12:45 - Physical Exam Constitutional: no apparent distress, appears nourished Eyes: PERRL Ears, Nose, Mouth, Throat: hearing normal Cardiovascular: regular rate and rhythym Respiratory: no respiratory distress, no rales or rhonchi Gastrointestinal: normoactive bowel sounds Skin: warm Neurologic: AAOx3, sensation intact bilaterally Psychiatric: interacting appropriately ICD10 Worksheet Patient Problems: Problems Problem Status Onset Diskitis Acute
[2018-09-26] MEDS ORDERED: POTASSIUM CL 20 MEQ TAB PO ONE (08:44)
--- NOTE | 2018-09-26 10:03 | PCMIDPN ---
Assessment/Plan: #L3-L4 discitis and possible OM and with lumbar stenosis at L2/3, L3/4. No lab or historical signs of infection but radiologic fairly convincing. Await another 24h for micro maturity. --Will consider repeat imaging (last MRI 09/24) or consider surgical intervention to obtain better samples. --Continue to hold abx #History of Prostate CA w increasing PSA Subjective: patient without c/o today walking helps relieve L leg pain Objective: Vital Signs Temp Pulse Resp BP Pulse Ox 36.6 C 66 17 159/76 H 94 09/26/18 07:29 09/26/18 07:29 09/26/18 07:29 09/26/18 07:29 09/26/18 07:29 Microbiology 09/25/18 17:11 Gram Stain - Final Back - Aspirate 09/25/18 17:11 Mycobacterial Smear (MELANIE) - Final Back - Aspirate Mycobacterial Culture - Final Laboratory Results 09/25/18 04:19 09/25/18 04:19 09/25/18 09/26/18 09/27/18 05:59 05:59 05:59 Intake Total 500 200 Balance 500 200 ESR 12 MM/HR (0-20) 09/24/18 19:00 C-Reactive Protein 9.4 mg/L (<10.0) 09/24/18 19:00 - Physical Exam General Appearance: alert, no apparent distress EENT: No scleral icterus Respiratory: lungs clear, No accessory muscle use Neck: supple Cardiac/Chest: regular rate, rhythm Extremities: No pedal edema Abdomen: non-tender, soft Skin: No rash, No embolic lesions Neuro/Psych: alert, normal mood/affect, oriented x 3 - Time Spent With Patient Time Spent with Patient: greater than 25 minutes (reviewed plans as described above w patient and daughter at bedside, care coordinated w hospitalist) Time Spent with Patient: Greater than 25 minutes spent on this patients care, greater than 50% of time spent counseling, educating, and coordinating care regarding the above mentioned plan. ICD10 Worksheet Patient Problems: Problems Problem Status Onset Diskitis Acute
[2018-09-26] MEDS: [UNRECOGNIZED DRUG - OTHER] PO SCH (19:50)
[2018-09-26] MEDS: DOXAZOSIN MESYLATE 1 MG TAB PO SCH (21:07)
[2018-09-26] MEDS: ATORVASTATIN CALCIUM 20 MG TAB PO SCH (21:07)
[2018-09-27] MEDS: FUROSEMIDE 20 MG TAB PO SCH (09:00)
[2018-09-27] MEDS: SPIRONOLACTONE 25 MG TAB PO SCH (09:01)
[2018-09-27] MEDS: METOPROLOL TARTRATE 50 MG TAB PO SCH ×2 (09:03→20:48)
[2018-09-27] MEDS: IRBESARTAN 150 MG TAB PO SCH (09:04)
[2018-09-27] MEDS: VERAPAMIL ER 180 MG TAB PO SCH ×2 (09:04→20:47)
--- NOTE | 2018-09-27 10:08 | NEUSURGPN ---
Assessment/Plan: Assessment/Plan: Assessment: 87 yo M with presumed L3/4 discitis and psoas muscle abscess also with lumbar stenosis at L2/3, L3/4 Plan: neuro: stable. pain improves while walking. neurogenic claudication likely from lumbar stenosis from L2-4, IR aspiration of disc, cultures pending, but are stil negative at this point. Spoke with Dr. David and does not think at this point cultures will yield a positive result. Recommending surgery to get more bone and could also decompress with two level lami at the same time Dr. Luis to go speak with patient later this afternoon after surgical option PT/OT Please call with neuro changes discussed with Dr Luis Subjective: No changes. Continued leg/hip pain that is no better or worse. improves with walking. Continues to have no weakness, ataxia or bowel/bladder changes. Objective: NAD, VSS CN II-XII grossly intact Alert, speech fluent BLE 5/5= Sensation intact to lt touch - Physician Discussed Patient with Dr.: Other (Janelle) Neurosurgery Physical Exam - Vitals, I&O, Labs I and O 09/26/18 09/27/18 09/28/18 05:59 05:59 05:59 Intake Total 500 450 200 Balance 500 450 200 Weight 95.254 kg Intake: Oral (ml) 350 450 200 IV Infused (ml) 150 Ns 1,000 ml @ 30 mls/hr 150 IV CONT SERGIO Rx#: [id number] Other: Intake Quantity No Yes Yes Sufficient Number of Voids Toilet 2 1 1 Microbiology 09/25/18 17:11 Gram Stain - Final Back - Aspirate Vital Signs Temp Pulse Resp BP Pulse Ox 36.7 C 71 18 140/73 H 93 09/27/18 08:04 09/27/18 09:03 09/27/18 08:04 09/27/18 09:04 09/27/18 08:04 Laboratory Results 09/25/18 04:19 09/27/18 04:24 ICD10 Worksheet Patient Problems: Problems Problem Status Onset Diskitis Acute
--- NOTE | 2018-09-27 11:03 | PCMIDPN ---
Assessment/Plan: #L3-L4 discitis and possible OM and with lumbar stenosis at L2/3, L3/4. No lab or historical signs of infection but radiologic fairly convincing. Percutaneous Cx neg so far but sample small --Will consider surgical intervention to obtain better samples, appreciate Dr. Luis who will discuss w pt and family this afternoon --Continue to hold abx #History of Prostate CA w increasing PSA Microbiology 09/25/18 17:11 Back - Aspirate Gram Stain neg; Cx NGTD 09/24/18 19:40 Blood Cx (2) : NGTD Subjective: patient feeling well anxious to get out of the hospital Objective: Vital Signs Temp Pulse Resp BP Pulse Ox 36.7 C 71 18 140/73 H 93 09/27/18 08:04 09/27/18 09:03 09/27/18 08:04 09/27/18 09:04 09/27/18 08:04 Microbiology 09/25/18 17:11 Gram Stain - Final Back - Aspirate Laboratory Results 09/25/18 04:19 09/27/18 04:24 09/26/18 09/27/18 09/28/18 05:59 05:59 05:59 Intake Total 500 450 200 Balance 500 450 200 ESR 12 MM/HR (0-20) 09/24/18 19:00 C-Reactive Protein 9.4 mg/L (<10.0) 09/24/18 19:00 - Physical Exam General Appearance: alert, no apparent distress Respiratory: No accessory muscle use Skin: No rash Neuro/Psych: alert, normal mood/affect, oriented x 3, other (ambulating about the halls) - Time Spent With Patient Time Spent with Patient: greater than 35 minutes (care coordinated with Dr. Luis, Ewelina Messina [employer] MA[employer]GER) Time Spent with Patient: Greater than 35 minutes spent on this patients care, greater than 50% of time spent counseling, educating, and coordinating care regarding the above mentioned plan. ICD10 Worksheet Patient Problems: Problems Problem Status Onset Diskitis Acute
--- NOTE | 2018-09-27 11:16 | HOSPPROG ---
Hospitalist Progress Note Assessment/Plan: 87 yo M with PMH of CAD, prostate cancer presenting with leg/back pain and found to have diskitis, osteomyelitis of lumbar spine. 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 Subjective: Al continues to have pain down his left leg. Objective: Vital Signs Temp Pulse Resp BP Pulse Ox 36.7 C 71 18 140/73 H 93 09/27/18 08:04 09/27/18 09:03 09/27/18 08:04 09/27/18 09:04 09/27/18 08:04 Microbiology 09/25/18 17:11 Gram Stain - Final Back - Aspirate Laboratory Results 09/25/18 04:19 09/27/18 04:24 09/26/18 09/27/18 09/28/18 05:59 05:59 05:59 Intake Total 500 450 200 Balance 500 450 200 PT 12.6 SEC (12.0-15.0) 09/25/18 12:45 INR 0.98 (0.83-1.16) 09/25/18 12:45 - Physical Exam Constitutional: no apparent distress, appears nourished Eyes: PERRL Ears, Nose, Mouth, Throat: hearing normal Respiratory: no respiratory distress Skin: warm Musculoskeletal: generalized weakness Neurologic: AAOx3 Psychiatric: interacting appropriately ICD10 Worksheet Patient Problems: Problems Problem Status Onset Diskitis Acute
--- NOTE | 2018-09-27 14:59 | ASMTCMCOM ---
CM Note CM Note Notes: Pts case discussed w/ Ewelina Messina NP. Therapies have cleared pt to d/c without any needs. Pt will most likely require ivabx at time of d/c. Currently ivabx is currently on hold and awaiting cultures. Referral sent to [facility] and [facility]. [facility]. CM to follow. Plan: TBD Date Signed: 09/27/2018 02:58 PM Electronically Signed By:KISHOR Berman
[2018-09-27] MEDS: [UNRECOGNIZED DRUG - OTHER] PO SCH (18:11)
[2018-09-27] MEDS: ATORVASTATIN CALCIUM 20 MG TAB PO SCH (20:46)
[2018-09-27] MEDS: DOXAZOSIN MESYLATE 1 MG TAB PO SCH (20:48)
[2018-09-28] MEDS ORDERED: LR 1,000 ML IV ONE (06:23)
[2018-09-28] MEDS ORDERED: CHLORHEXIDINE GLUC HIBICLENS 118 ML BTL TP ONE (06:56)
[2018-09-28] MEDS ORDERED: SURGIFLO MATRIX KIT WITH THROMBIN 8 ML TP ONE ×3 (06:56→10:01)
--- NOTE | 2018-09-28 06:56 | PDHPUP ---
History & Physical Update H&P update statement: This history and physical update is based on an assessment of the patient which was completed after admission or registration (within 24 hours), but prior to the surgery/procedure. H&P update: H&P reviewed & patient examined, no change in patient's condition since H&P completed H&P changes: Plan L2-3 and L3-4 decompressive laminectomies and biopsy of L3-4 disc for culture. Consents signed and on chart. Surgical site marked by me. No preoperative antibiotics pending biopsy.
[2018-09-28] MEDS ORDERED: EPINEPHrine 1 MG/ML INJ ONE (06:57)
[2018-09-28] MEDS ORDERED: BACITRACIN 50,000 UNITS/10 ML SYR IRR ONE (06:57)
[2018-09-28] MEDS ORDERED: THROMBIN (BOVINE) 5,000 UNIT VIAL TP ONE (06:57)
[2018-09-28] MEDS ORDERED: BUPIVACAINE 0.25% 30 ML SDV ONE (06:57)
[2018-09-28] MEDS ORDERED: DEPO METHYLPREDNISOLONE 40 MG/ML SDV ONE (06:57)
[2018-09-28] MEDS ORDERED: ALBUTEROL 3 ML DEYVIAL IH PRN (07:05)
[2018-09-28] MEDS ORDERED: DEXAMETHASONE 4 MG/ML VIAL IVP PRN (07:05)
[2018-09-28] MEDS ORDERED: fentaNYL 100 MCG/2 ML INJ IVP PRN (07:05)
[2018-09-28] MEDS ORDERED: NALOXONE HCL 0.4 MG/ML INJ IVP PRN (07:05)
[2018-09-28] MEDS ORDERED: HYDROmorphONE/DILAUDID 2 MG/ML INJ IVP PRN (07:05)
[2018-09-28] MEDS ORDERED: oxyCODONE IR 5 MG TAB PO PRN (07:05)
[2018-09-28] MEDS ORDERED: ONDANSETRON 4 MG/2 ML VIAL IVP PRN (07:05)
--- NOTE | 2018-09-28 07:08 | PDANEPAE ---
ANE History of Present Illness L2-4 ANE Past Medical History - Cardiovascular History Hx Hypertension: Yes Hx Coronary Artery / Peripheral Vascular Disease: Yes Hx CHF / Valvular Disease: Yes - Pulmonary History Hx Oxygen in Use at Home: No Hx Sleep Apnea: Yes Sleep Apnea Screening Result - Last Documented: Positive - Endocrine History Hx Diabetes: No - Chronic Pain History Chronic Pain: Yes ANE Review of Systems Review of Systems: - Exercise capacity Exercise capacity: >=4 METS ANE Patient History - Allergies Allergies/Adverse Reactions: No Known Allergies Allergy (Verified 09/24/18 18:16) - Home Medications Home Medications: Aspirin [Aspir 81] 81 mg PO DAILY 07/24/12 [Last Taken 09/24/18] Atorvastatin Calcium [Lipitor 20 mg (*)] 20 mg PO HS 09/24/18 [Last Taken ] Doxazosin Mesylate 2 mg PO HS 09/24/18 [Last Taken 09/23/18] Furosemide [Lasix 20 MG (*)] 20 mg PO DAILY 09/24/18 [Last Taken 09/24/18] Irbesartan [Avapro] 300 mg PO DAILY 09/24/18 [Last Taken 09/24/18] Metoprolol Tartrate [Lopressor 50 mg (*)] 50 mg PO BID 09/24/18 [Last Taken 06/04] Spironolactone [Aldactone 25 MG (*)] 25 mg PO DAILY 09/24/18 [Last Taken ] Verapamil ER [Calan SR/ER 180MG (*)] 180 mg PO BID 09/24/18 [Last Taken 09/24/18 ] Xtandi 160 mg PO DAILY 09/24/18 [Last Taken 09/24/18] - NPO status NPO Since - Liquids (Date): 09/28/18 NPO Since - Liquids (Time): 00:00 NPO Since - Solids (Date): 09/28/18 NPO Since - Solids (Time): 00:00 - Smoking Hx Smoking Status: Former smoker - Alcohol Use Alcohol Use: Other (daily martini) ANE Labs/Vital Signs - Labs Result Diagrams: 09/25/18 04:19 09/27/18 04:24 - Vital Signs Blood Pressure: 164/87 Heart Rate: 77 Respiratory Rate: 17 O2 Sat (%): 95 Height: 170.18 cm Weight: 95.254 kg ANE Physical Exam - Airway Neck exam: FROM Mallampati Score: Class 2 Mouth exam: normal dental/mouth exam - Pulmonary Pulmonary: clear to auscultation - Cardiovascular Cardiovascular: regular rate and rhythym - ASA Status ASA Status: III ANE Anesthesia Plan Anesthesia Plan: general endotracheal anesthesia Total IV Anesthesia: Yes
[2018-09-28] MEDS ORDERED: ROCURONIUM 50 MG/5 ML VIAL ONE (07:10)
[2018-09-28] MEDS ORDERED: PROPOFOL 200 MG/20 ML VIAL ONE (07:10)
[2018-09-28] MEDS ORDERED: HYDROmorphONE/DILAUDID 2 MG/ML INJ ONE (07:11)
[2018-09-28] MEDS ORDERED: ceFAZolin 1 GM VIAL ONE ×2 (07:42)
[2018-09-28] MEDS ORDERED: ONDANSETRON 4 MG/2 ML VIAL ONE (09:50)
[2018-09-28] MEDS ORDERED: DEXAMETHASONE 4 MG/ML VIAL ONE (09:50)
[2018-09-28] MEDS ORDERED: RANITIDINE 50 MG/2 ML VIAL ONE (09:51)
[2018-09-28] MEDS ORDERED: MAGNESIUM HYDROXIDE 30 ML UDCUP PO PRN (11:40)
[2018-09-28] MEDS ORDERED: LACTULOSE 20 GM/30 ML UDCUP PO PRN (11:40)
[2018-09-28] MEDS ORDERED: POLYETHYLENE GLYCOL 3350 17 GM PKT PO PRN (11:40)
[2018-09-28] MEDS ORDERED: diphenhydrAMINE 25 MG CAP PO PRN (11:40)
[2018-09-28] MEDS ORDERED: BISACODYL 10 MG SUPP PR PRN (11:40)
--- NOTE | 2018-09-28 11:41 | POSTOPPROG ---
Post Op Note Date of Operation: 09/28/18 Surgeon: Jitendra Luis [employer] Supervisor: None Anesthesiologist: Abhinav Steen D.O. Anesthesia: GET(General Endotracheal), Local (Specify) Pre-op Diagnosis: L2-3 and L3-4 stenosis with radiculopathy; L3-4 osteodiscitis Post-op Diagnosis: Same Indication: Pain, potential infection Procedure: L2-3 and L3-4 decompressive laminectomies; L3-4 disc and vertebral biopsies Findings: Adequate decompression at both levels; no obvious sign of infection Inf/Abcess present in the surg proc area at time of surgery?: Yes Depth: Organ Space EBL: 50-100 Complications: None Bowel Protocol: N/A Clean Closure Performed: N/A Drains: Diaz Bey Specimen(s): 1. L3-4 disc material for cultures. 2. L4 vertebral body for cultures. 3. L3 and L4 vertebral bodies for pathology.
--- NOTE | 2018-09-28 11:56 | SOAPPROG ---
SOAP Progress Note Assessment/Plan: Assessment: He is doing well s/p L2-3 and L3-4 decompressive laminectomies and L3-4 vertebral bodies/disc biopsies Plan: - Transfer to med/surg shni - Pain management - Postop prophylactic IV Ancef x 24 hours; await cultures and will change appropriately with ID guidance - INGRID compressed, will follow output - Head of bed elevated - ADAT - Continue PT txs 09/28/18 11:53 Subjective: I saw Jaswinder in the PACU. He has not complaints currently. Objective: Vital Signs Temp Pulse Resp BP Pulse Ox 36.7 C 77 13 117/61 96 09/28/18 11:07 09/28/18 07:07 09/28/18 11:21 09/28/18 11:21 09/28/18 11:21 Microbiology 09/25/18 17:11 Gram Stain - Final Back - Aspirate Laboratory Results 09/25/18 04:19 09/27/18 04:24 09/27/18 09/28/18 09/29/18 05:59 05:59 05:59 Intake Total 014 572 9295 Output Total 50 Balance 450 200 950 PT 12.6 SEC (12.0-15.0) 09/25/18 12:45 INR 0.98 (0.83-1.16) 09/25/18 12:45 Asleep but arousable, somewhat drowsy Moves both legs with at least antigravity strength; too sleepy for individual muscle power testing SILT throughout BLE INGRID bulb compressed with sanguinous drainage ICD10 Worksheet Patient Problems: Problems Problem Status Onset Diskitis Acute
[2018-09-28] MEDS ORDERED: ceFAZolin 2 GM/DEXTROSE 100 ML IV SCH ×2 (12:30→15:30)
[2018-09-28] MEDS: VERAPAMIL ER 180 MG TAB PO SCH ×2 (14:41→21:30)
[2018-09-28] MEDS: METOPROLOL TARTRATE 50 MG TAB PO SCH ×2 (14:41→21:29)
--- NOTE | 2018-09-28 14:50 | GOP ---
[f rep st] OPERATIVE REPORT DATE OF OPERATION: 09/28/2018 PREOPERATIVE DIAGNOSES: 1. L3-4 spinal canal stenosis with radiculopathy. 2. L2-3 spinal canal stenosis. 3. Potential infection at L3-4 within the disk space and adjacent vertebral bodies. POSTOPERATIVE DIAGNOSES: 1. L3-4 spinal canal stenosis with radiculopathy. 2. L2-3 spinal canal stenosis. 3. Potential infection at L3-4 within the disk space and adjacent vertebral bodies. PROCEDURE PERFORMED: 1. Bilateral hemilaminectomies for decompression of the spinal canal with medial facetectomies and bilateral neural foraminotomies at L3-4 (CPT code 24866 ). 2. Bilateral decompressive hemilaminectomies, medial facetectomies, and bilateral neural foraminotomies at L2-3 (CPT code 90871). 3. Open biopsy of L3-4 disk and L3 and L4 vertebral bodies (CPT code 15734). SURGEON: Jitendra Luis M.D. REAR LOAD TRUCK DRIVER: None. ANESTHESIA: General endotracheal and local anesthesia. INDICATIONS: The patient is an 87-year-old gentleman who has been having low back and radiating left leg pain for approximately the past 2 months. He has been treated with nonoperative measures including nonsteroidal antiinflammatory medications, muscle relaxants, and physical therapy. He was not improving. Notably, he also has a history of prostate cancer and recently had a bone scan that showed potential bone metastases at T11 and L1. An MRI was performed, which confirmed small intervertebral tumors at those levels, but also demonstrated degenerative stenosis at L2-3 and L3-4, as well as contrast enhancement within the L3-4 disk space and adjacent vertebral bodies, namely L3 and L4. The interventional radiologist performed an aspiration of the L3-4 disk space 3 days ago, and cultures have, so far, been negative. Given the strong suspicion of infection based on the MRI, and given his symptoms, which may be, at least in part, due to stenosis, and after consultation with Infectious Disease doctor, we presented decompressive laminectomies and open biopsy for cultures to the patient. He was agreeable with this plan. DESCRIPTION OF PROCEDURE: Prior to surgery, all the indications, risks, benefits, alternatives, and expected recuperation were discussed with the patient and his daughter. Appropriate consent forms were signed. The operative site was marked by the surgeon. He was brought to the operating room where general anesthesia was induced, and he was intubated without any complications. Necessary lines and neural monitoring leads were established. He was then turned into prone position on the Iván frame. All pressure points were appropriately padded. His low back was then prepped and draped in usual sterile fashion. A time-out was done per protocol. No IV antibiotics were given due to the need for accurate cultures. A spinal needle was inserted through the skin, and fluoroscopic images were taken to localize the correct levels. Approximately 10 mL of 0.25% Marcaine with epinephrine were then injected along the planned incision for local anesthesia and vasoconstriction. An approximately 4-inch incision was then made along the midline over the posterior spine extending from L2 through L4 levels. This was carried deeper with Bovie cautery, and the lumbar fascia was opened with this device. A cerebellar retractor was used for exposure at this point. The paraspinal muscles were then dissected in a subperiosteal plan from the bilateral sides of L2, L3, and superior L4 spinous processes, and the L2 and L3 laminae. Care was taken not to disturb the facet joint capsule at these levels. Once there was adequate exposure, the cerebellar retractor was removed, and the Shadow-Line retractor was used for the remainder of the case. The bilateral laminae of L3 were then thinned with a matchstick bur on the high- speed drill to expose the underlying ligamentum flavum. The laminectomies were then completed with Kerrison rongeurs. The superior portion of the ligamentum flavum was exposed, and the ligamentum flavum was carefully from the thecal sac. The ligamentum flavum was then removed bilaterally. Bilateral medial facetectomies and neural foraminotomies were also completed with Kerrison rongeurs and foraminotomy rongeurs. Once there was adequate decompression of the spinal canal, attention was turned to taking biopsies. The thecal sac was retracted medially from the left side, and a 4 Orlando was placed within the disk space. Confirmatory radiographs were taken. The microforceps were then used to take a biopsy of the L3-4 disk space. This specimen was sent for routine bacterial, fungal, and acid-fast bacilli cultures. A bone biopsy needle was then placed within the L4 vertebral body, and 2 core biopsies were taken, one for culture as above, and also one for permanent section pathology. Once these samples were obtained, IV Ancef was given by the anesthesiologist. Attention was then turned to the L2-3 segment. The bilateral laminae of L2 were thinned with a matchstick bur on the high-speed drill as at the prior level. A bilateral decompression was then performed in the same manner as the prior level, including bilateral medial facetectomies and neural foraminotomies. Once adequate decompression of the spinal canal was achieved, the bone biopsy needle was once again used to obtain a sample in the same manner as above, this time of the L3 vertebral body, and this was sent for permanent section pathology. Final hemostasis was then obtained with the use of Surgiflo and cottonoids within the epidural space, and bipolar cautery within the paraspinal muscles. A 10-Upper Sorbian round PVC Diaz-Bey drain was placed in the subfascial space and brought out through a separate stab incision to the left inferior aspect of the incision. The wound was then irrigated thoroughly with Bacitracin- containing irrigation. Attention was turned to closure. The paraspinal muscles were reapproximated with 0 Vicryl sutures. The lumbar fascia was then closed tightly with interrupted 0-Vicryl suture. A layer of 2-0 Vicryl interrupted sutures was placed in the deep adipose, and then finally, interrupted inverted 2-0 Vicryl sutures were placed in the subcuticular layer. The drain tube was anchored to the skin with a 2-0 nylon suture, the bulb was attached, and suction was applied. Dermabond was then used on the superficial skin layer. An additional 30 mL of 0.25% Marcaine with epinephrine were injected along the incision for further local anesthesia. The drapes were then removed from the patient, and his care was returned to Anesthesia to evaluate for extubation. Notably all counts were correct x2 at the end of the case. Also, there were no changes on somatosensory evoked potential monitoring. ESTIMATED BLOOD LOSS: 50 mL. SPECIMENS: 1. L3-4 disk material for routine bacterial, fungal, and AFB cultures. 2. L4 vertebral body for routine bacterial, fungal, and AFB cultures. 3. L4 vertebral body for permanent section pathology. 4. L3 vertebral body for permanent section pathology. DRAINS: Subfascial 10-Upper Sorbian round PVC Diaz-Bey drain. COMPLICATIONS: None apparent. DISPOSITION: It is expected that the patient will be extubated in the operating room and then taken to the postanesthesia care unit for further recovery. /[id number]/MODL MTDD
--- NOTE | 2018-09-28 14:52 | HOSPPROG ---
Hospitalist Progress Note Assessment/Plan: 87 yo M with PMH of CAD, prostate cancer presenting with leg/back pain and found to have diskitis, osteomyelitis of lumbar spine. 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 no n/v. seen post op. mild back pain, denies radiculopathy Objective: Vital Signs Temp Pulse Resp BP Pulse Ox 36.7 C 80 15 136/79 H 91 L 09/28/18 14:14 09/28/18 14:14 09/28/18 14:14 09/28/18 14:14 09/28/18 14:14 Microbiology 09/28/18 09:25 Gram Stain - Final Neck - Bone 09/28/18 09:25 Gram Stain - Final Vertebral Disc 09/25/18 17:11 Gram Stain - Final Back - Aspirate Laboratory Results 09/25/18 04:19 09/27/18 04:24 09/27/18 09/28/18 09/29/18 05:59 05:59 05:59 Intake Total 670 672 3864 Output Total 100 Balance 491 899 0708 PT 12.6 SEC (12.0-15.0) 09/25/18 12:45 INR 0.98 (0.83-1.16) 09/25/18 12:45 - Physical Exam Constitutional: no apparent distress Eyes: PERRL, EOMI Ears, Nose, Mouth, Throat: moist mucous membranes, hearing normal Cardiovascular: regular rate and rhythym, No edema Respiratory: no respiratory distress, no rales or rhonchi, clear to auscultation Gastrointestinal: normoactive bowel sounds, soft, non-tender abdomen Skin: warm Neurologic: AAOx3 Psychiatric: interacting appropriately, not anxious, not encephalopathic Lymph, Heme, Immunologic: No petechiae ICD10 Worksheet Patient Problems: Problems Problem Status Onset Diskitis Acute
--- NOTE | 2018-09-28 15:08 | PCMIDPN ---
Assessment/Plan: #L3-L4 discitis and possible OM and with lumbar stenosis at L2/3, L3/4. Went to OR today for L2-3 and L3-4 decompressive laminectomies and did quite well, bone and disc samples were collected --Will consider surgical intervention to obtain better samples, appreciate Dr. Luis who will discuss w pt and family this afternoon --initiate cefepime 2 g IV q.12 as empiric antibiotic therapy. In light of past bacteremia with Enterobacter will utilize a broader spectrum cephalosporin for coverage empirically. Reviewed side effects of cefepime including GRINDER MACHINE KNIFE SETTER toxicity and risks for C diff. --place PICC line #History of Prostate CA w increasing PSA # history of enterobacter bacteremia, source left ankle s/p ORIF in July 2016. See susceptibilities below Microbiology 09/25/18 17:11 Back - Aspirate Gram Stain neg; Cx NGTD 09/24/18 19:40 Blood Cx (2) : NGTD 07/27/16 Blood cx grew Enterobacter with resistance to Augmentin, Ampicillin, Cefazolin, and Unasyn. Susceptibilities: MELANIE to cefepime < 0.5, ertapenem < 0.125, levofloxacin < 1, Zosyn 4/4, Bactrim < 0.5/9.5. Care coordinated with hospitalist and case management, nursing 09/28/18 16:10 Subjective: Source: The patient and his daughter. Pt states that he is feeling sleepy. His daughter provides that he has some lower back pain where the incision is, but the pain that was radiating down his legs has resolved. I, Uzma Mcgee, am scribing for, and in the presence of, Sybil David MD ISybil MD, personally performed the services described in this documentation, as scribed by Uzma Mcgee in my presence, and it is both accurate and complete. Objective: Vital Signs Temp Pulse Resp BP Pulse Ox 36.7 C 80 15 136/79 H 91 L 09/28/18 14:14 09/28/18 14:14 09/28/18 14:14 09/28/18 14:14 09/28/18 14:14 Microbiology 09/28/18 09:25 Gram Stain - Final Neck - Bone 09/28/18 09:25 Gram Stain - Final Vertebral Disc 09/25/18 17:11 Gram Stain - Final Back - Aspirate Laboratory Results 09/25/18 04:19 09/27/18 04:24 09/27/18 09/28/18 09/29/18 05:59 05:59 05:59 Intake Total 668 956 6778 Output Total 100 Balance 248 242 7589 ESR 12 MM/HR (0-20) 09/24/18 19:00 C-Reactive Protein 9.4 mg/L (<10.0) 09/24/18 19:00 - Physical Exam General Appearance: alert, no apparent distress EENT: No scleral icterus Respiratory: lungs clear, normal breath sounds, other (on 3 L/min via nasal cannula ), No respiratory distress Cardiac/Chest: regular rate, rhythm Back: other (lumbar incision c/d/i and is glued shut, INGRID drain with serosanguinous fluid), No spine tenderness Skin: warm/dry, No rash Neuro/Psych: normal mood/affect, oriented x 3 - Line/s PIV Lines: No drainage, No erythema - Time Spent With Patient Time Spent with Patient: greater than 35 minutes Time Spent with Patient: Greater than 35 minutes spent on this patients care, greater than 50% of time spent counseling, educating, and coordinating care regarding the above mentioned plan. ICD10 Worksheet Patient Problems: Problems Problem Status Onset Diskitis Acute
[2018-09-28] MEDS: IRBESARTAN 150 MG TAB PO SCH (15:28)
[2018-09-28] MEDS: FUROSEMIDE 20 MG TAB PO SCH (15:28)
[2018-09-28] MEDS: METHOCARBAMOL 750 MG TAB PO PRN (15:28)
[2018-09-28] MEDS: SPIRONOLACTONE 25 MG TAB PO SCH (15:29)
--- NOTE | 2018-09-28 15:36 | ASMTCMCOM ---
CM Note CM Note Notes: Pts case discussed w/ Dr. David. Pt will require 6 gram of cefazolin continuous infusion when medically stable. It is uncertain when pt will be medically stable to d/c. Pt will still need a picc line before d/c. CM to follow. Plan: Alfonso; RN Date Signed: 09/28/2018 03:35 PM Electronically Signed By:KISHOR Berman
--- NOTE | 2018-09-28 15:41 | PCMIDPN ---
Assessment/Plan: #L3-L4 discitis and possible OM and with lumbar stenosis at L2/3, L3/4. No lab or historical signs of infection but radiologic fairly convincing. Percutaneous Cx neg so far but sample small --Will consider surgical intervention to obtain better samples, appreciate Dr. Luis who will discuss w pt and family this afternoon --Continue to hold abx #History of Prostate CA w increasing PSA Microbiology 09/25/18 17:11 Back - Aspirate Gram Stain neg; Cx NGTD 09/24/18 19:40 Blood Cx (2) : NGTD Objective: Vital Signs Temp Pulse Resp BP Pulse Ox 36.7 C 80 15 136/79 H 91 L 09/28/18 14:14 09/28/18 14:14 09/28/18 14:14 09/28/18 15:28 09/28/18 14:14 Microbiology 09/28/18 09:25 Gram Stain - Final Neck - Bone 09/28/18 09:25 Gram Stain - Final Vertebral Disc 09/25/18 17:11 Gram Stain - Final Back - Aspirate Laboratory Results 09/25/18 04:19 09/27/18 04:24 09/27/18 09/28/18 09/29/18 05:59 05:59 05:59 Intake Total 309 742 5522 Output Total 100 Balance 884 642 9032 ESR 12 MM/HR (0-20) 09/24/18 19:00 C-Reactive Protein 9.4 mg/L (<10.0) 09/24/18 19:00 ICD10 Worksheet Patient Problems: Problems Problem Status Onset Diskitis Acute
--- NOTE | 2018-09-28 15:42 | PDIAF ---
- Diagnosis Diagnosis: L3-L4 discitis and possible OM Code Status: Full Code - Medication Management Ad Taker Antibiotics: cefepime 2gm IV q12h [facility] Antibiotic Stop Date: 11/23/18 Discharge Medications: electronically signed and located in the Home Medication List. PICC Care - Routine: Yes - Orders Services needed: Home Care, Registered Nurse Home Care Face to Face: I certify that this patient was under my care and that I had the required [id number] encounter meeting the encounter requirements on the discharge day. My findings support the fact that the patient is homebound as defined in Home Care Face to Face Continued: CMS Chapter 7 Medicare Benefits Manual 30.1.1 , The condition of the patient is such that there exists a normal inability to leave home and consequently, leaving home would require a considerable and taxing effort. - Labs/Radiology CBC w/diff Date: 10/08/18 (Weekly Monday) CMP Date: 10/08/18 (Weekly Monday) CRP Date: 10/08/18 (Weekly Monday) Call or Fax Lab and Imaging Results to: Sybil David MD [facility] at fax [phone] - Follow Up Care Current Providers and Referrals: Sybil David MD [Medical Doctor] - 10/10/18 11:00 am Noel Cedeño MD [Primary Care Provider] - As per Instructions
[2018-09-28] MEDS ORDERED: ALTEPLASE 2 MG VIAL IVP PRN (15:50)
[2018-09-28] MEDS: CEFEPIME HCL 2 GM in NS 100 ML IV SCH ×2 (16:05→21:35)
[2018-09-28] MEDS: HYDROCODONE/APAP 5/325 TAB PO PRN ×2 (18:27→21:39)
[2018-09-28] MEDS: ATORVASTATIN CALCIUM 20 MG TAB PO SCH (21:29)
[2018-09-28] MEDS: DOXAZOSIN MESYLATE 1 MG TAB PO SCH (21:30)
[2018-09-28] MEDS: SENNOSIDES/DOCUSATE SODIUM TAB PO SCH (21:31)
[2018-09-28] MEDS: [UNRECOGNIZED DRUG - OTHER] PO SCH (21:32)
[2018-09-29] MEDS: HYDROCODONE/APAP 5/325 TAB PO PRN ×4 (00:13→19:32)
[2018-09-29] MEDS: METHOCARBAMOL 750 MG TAB PO PRN ×3 (00:13→15:25)
[2018-09-29 05:55] LABS: PLATELET COUNT 170 10^3/uL (150-400)
[2018-09-29] MEDS: SENNOSIDES/DOCUSATE SODIUM TAB PO SCH ×2 (07:54→21:16)
[2018-09-29] MEDS: VERAPAMIL ER 180 MG TAB PO SCH ×2 (07:54→21:16)
[2018-09-29] MEDS: FUROSEMIDE 20 MG TAB PO SCH (07:54)
[2018-09-29] MEDS: IRBESARTAN 150 MG TAB PO SCH (07:54)
[2018-09-29] MEDS: SPIRONOLACTONE 25 MG TAB PO SCH (07:55)
[2018-09-29] MEDS: METOPROLOL TARTRATE 50 MG TAB PO SCH ×2 (07:55→21:14)
[2018-09-29] MEDS: CEFEPIME HCL 2 GM in NS 100 ML IV SCH ×2 (08:36→21:11)
--- NOTE | 2018-09-29 09:40 | SOAPPROG ---
SOAP Progress Note Assessment/Plan: Assessment: POD #1 sp L2-4 lami with resolution of his leg pain. now with expected incisional back pain. He is doing well s/p L2-3 and L3-4 decompressive laminectomies and L3-4 vertebral bodies/disc biopsies Plan: - PT/OT - Pain management - Postop prophylactic IV Ancef x 24 hours; await cultures and will change appropriately with ID guidance - INGRID compressed, will follow output - Head of bed as tolerated - ADAT Subjective: Lying flat, daughter present. Pt has been up and ambulated to this AM with OT. States his leg pain is gone. Had incisional pain overnight, now controlled Objective: Vital Signs Temp Pulse Resp BP Pulse Ox 36.9 C 89 18 146/85 H 93 09/29/18 07:39 09/29/18 07:55 09/29/18 07:39 09/29/18 07:55 09/29/18 07:39 Microbiology 09/28/18 09:25 Gram Stain - Final Neck - Bone 09/28/18 09:25 Gram Stain - Final Vertebral Disc 09/28/18 09:25 Mycobacterial Smear (MELANIE) - Final Neck - Bone 09/28/18 09:25 Mycobacterial Smear (MELANIE) - Final Vertebral Disc 09/25/18 17:11 Gram Stain - Final Back - Aspirate Laboratory Results 09/29/18 05:35 09/29/18 05:35 09/28/18 09/29/18 09/30/18 05:59 05:59 05:59 Intake Total 200 2000 100 Output Total 735 Balance 200 1265 100 PT 12.6 SEC (12.0-15.0) 09/25/18 12:45 INR 0.98 (0.83-1.16) 09/25/18 12:45 INGRID: 185ml serosang Neuro: A+ox4 LEGER, sens +LT follows commands Incision: glued and CDI ICD10 Worksheet Patient Problems: Problems Problem Status Onset Diskitis Acute
--- NOTE | 2018-09-29 13:27 | HOSPPROG ---
Hospitalist Progress Note Assessment/Plan: 87 yo M with PMH of CAD, prostate cancer presenting with leg/back pain and found to have diskitis, osteomyelitis of lumbar spine. * L3/4 discitis, osteomyelitis -s/p IR aspiration on 09/25 -Dr Luis performed bone biopsy today -ID following. on Cefepime. 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 CPM Subjective: no cp or sob. O2 needs are decreasing. afebrile. no cough. No radiculopathy Objective: Vital Signs Temp Pulse Resp BP Pulse Ox 36.9 C 74 14 101/46 L 93 09/29/18 12:00 09/29/18 12:00 09/29/18 12:00 09/29/18 12:00 09/29/18 12:00 Microbiology 09/25/18 17:11 Gram Stain - Final Back - Aspirate 09/28/18 09:25 Gram Stain - Final Neck - Bone 09/28/18 09:25 Gram Stain - Final Vertebral Disc 09/28/18 09:25 Mycobacterial Smear (MELANIE) - Final Neck - Bone 09/28/18 09:25 Mycobacterial Smear (MELANIE) - Final Vertebral Disc Laboratory Results 09/29/18 05:35 09/29/18 05:35 09/28/18 09/29/18 09/30/18 05:59 05:59 05:59 Intake Total 200 2000 100 Output Total 735 Balance 200 1265 100 PT 12.6 SEC (12.0-15.0) 09/25/18 12:45 INR 0.98 (0.83-1.16) 09/25/18 12:45 - Physical Exam Constitutional: no apparent distress Eyes: PERRL Ears, Nose, Mouth, Throat: moist mucous membranes, hearing normal Cardiovascular: regular rate and rhythym, no murmur, rub, or gallop, No edema Respiratory: no respiratory distress, no rales or rhonchi, clear to auscultation Gastrointestinal: normoactive bowel sounds, soft, non-tender abdomen Skin: warm Musculoskeletal: generalized weakness Neurologic: AAOx3 Psychiatric: interacting appropriately, not anxious, not encephalopathic Lymph, Heme, Immunologic: No petechiae ICD10 Worksheet Patient Problems: Problems Problem Status Onset Diskitis Acute Psoas abscess Acute
--- NOTE | 2018-09-29 14:25 | PCMIDPN ---
Assessment/Plan: Assessment: Possible lumbar diskitis. Patient with known prostate cancer with mets to the spine. Status post decompression of the lumbar area due to radicular leg pain late last week. Samples are not showing any evidence of infection at this point. He is empirically covered by cefepime. Will continue this medication until we are more clear that bacterial infection is not an etiology to his presentation at this point. Plan: 1. Continue IV cefepime. 2. Follow up on pathology results as well as micro results from operative samples. 09/29/18 14:22 Subjective: Patient is resting comfortably in his hospital bed. He reports decreased leg pain since surgery but has as expected lower back pain at the surgical site. No fevers or chills. Objective: Cefepime # 2 Vital Signs Temp Pulse Resp BP Pulse Ox 36.9 C 74 14 101/46 L 93 09/29/18 12:00 09/29/18 12:00 09/29/18 12:00 09/29/18 12:00 09/29/18 12:00 Microbiology 09/25/18 17:11 Gram Stain - Final Back - Aspirate 09/28/18 09:25 Gram Stain - Final Neck - Bone 09/28/18 09:25 Gram Stain - Final Vertebral Disc 09/28/18 09:25 Mycobacterial Smear (MELANIE) - Final Neck - Bone 09/28/18 09:25 Mycobacterial Smear (MELANIE) - Final Vertebral Disc Laboratory Results 09/29/18 05:35 09/29/18 05:35 09/28/18 09/29/18 09/30/18 05:59 05:59 05:59 Intake Total 200 2000 100 Output Total 735 Balance 200 1265 100 ESR 12 MM/HR (0-20) 09/24/18 19:00 C-Reactive Protein 9.4 mg/L (<10.0) 09/24/18 19:00 - Physical Exam General Appearance: WD/WN, alert, no apparent distress, non-toxic Cardiac/Chest: regular rate, rhythm, No tachycardia Skin: normal color, warm/dry, No rash Neuro/Psych: alert, normal mood/affect ICD10 Worksheet Patient Problems: Problems Problem Status Onset Diskitis Acute Psoas abscess Acute
[2018-09-29] MEDS: [UNRECOGNIZED DRUG - OTHER] PO SCH (18:43)
[2018-09-29] MEDS: ATORVASTATIN CALCIUM 20 MG TAB PO SCH (21:16)
[2018-09-29] MEDS: DOXAZOSIN MESYLATE 1 MG TAB PO SCH (21:17)
[2018-09-30] MEDS: HYDROCODONE/APAP 5/325 TAB PO PRN ×5 (00:12→19:29)
[2018-09-30] MEDS: METHOCARBAMOL 750 MG TAB PO PRN ×2 (00:12→20:16)
[2018-09-30 05:20] LABS: PLATELET COUNT 156 10^3/uL (150-400)
[2018-09-30] MEDS: SENNOSIDES/DOCUSATE SODIUM TAB PO SCH ×2 (08:56→20:16)
[2018-09-30] MEDS: VERAPAMIL ER 180 MG TAB PO SCH ×2 (08:56→20:15)
[2018-09-30] MEDS: CEFEPIME HCL 2 GM in NS 100 ML IV SCH ×2 (08:56→20:17)
[2018-09-30] MEDS: SPIRONOLACTONE 25 MG TAB PO SCH (08:58)
[2018-09-30] MEDS: IRBESARTAN 150 MG TAB PO SCH (08:58)
[2018-09-30] MEDS: METOPROLOL TARTRATE 50 MG TAB PO SCH ×2 (08:58→20:15)
[2018-09-30] MEDS: FUROSEMIDE 20 MG TAB PO SCH (08:59)
--- NOTE | 2018-09-30 09:12 | SOAPPROG ---
SOAP Progress Note Assessment/Plan: Assessment: POD #2 sp L2-4 lami with resolution of his leg pain. Expected incisional back pain. Plan: - PT/OT - Pain management - On cefipime per ID - INGRID compressed, will follow output. Continue until output minimal - Head of bed as tolerated -DC planning 09/30/18 09:10 Subjective: Out of bed in bedside chair. Doing well. Reports bilateral anterolateral leg pain this AM. Moving well overall. Pain controlled. Objective: Vital Signs Temp Pulse Resp BP Pulse Ox 37.0 C 72 28 H 120/78 92 09/30/18 08:00 09/30/18 08:58 09/30/18 08:00 09/30/18 08:58 09/30/18 08:00 Microbiology 09/24/18 19:40 Blood Culture - Final Blood 09/25/18 17:11 Gram Stain - Final Back - Aspirate 09/28/18 09:25 Gram Stain - Final Neck - Bone 09/28/18 09:25 Gram Stain - Final Vertebral Disc Laboratory Results 09/30/18 05:00 09/29/18 05:35 09/29/18 09/30/18 10/01/18 05:59 05:59 05:59 Intake Total 1999 1300 300 Output Total 735 360 Balance 1265 940 300 PT 12.6 SEC (12.0-15.0) 09/25/18 12:45 INR 0.98 (0.83-1.16) 09/25/18 12:45 ICD10 Worksheet Patient Problems: Problems Problem Status Onset Diskitis Acute Psoas abscess Acute
--- NOTE | 2018-09-30 12:26 | HOSPPROG ---
Hospitalist Progress Note Assessment/Plan: 87 yo M with PMH of CAD, prostate cancer presenting with leg/back pain and found to have diskitis, osteomyelitis of lumbar spine. * L3/4 discitis, osteomyelitis -s/p IR aspiration on 09/25 -Dr Luis performed bone biopsy -ID following. on Cefepime. 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 CPM -D/W Dr Ceron Subjective: Up in chair. Feeling ok. Still having some pain. No other issues. Objective: Vital Signs Temp Pulse Resp BP Pulse Ox 36.7 C 65 20 121/53 H 97 09/30/18 11:23 09/30/18 11:23 09/30/18 11:23 09/30/18 11:23 09/30/18 11:23 Microbiology 09/28/18 09:25 Gram Stain - Final Neck - Bone 09/28/18 09:25 Gram Stain - Final Vertebral Disc 09/24/18 19:40 Blood Culture - Final Blood 09/25/18 17:11 Gram Stain - Final Back - Aspirate Laboratory Results 09/30/18 05:00 09/29/18 05:35 09/29/18 09/30/18 10/01/18 05:59 05:59 05:59 Intake Total 2000 1300 300 Output Total 735 360 Balance 1265 940 300 PT 12.6 SEC (12.0-15.0) 09/25/18 12:45 INR 0.98 (0.83-1.16) 09/25/18 12:45 - Physical Exam Constitutional: appears nourished, uncomfortable Eyes: PERRL, anicteric sclera Ears, Nose, Mouth, Throat: hearing normal, ears appear normal Cardiovascular: No JVD, No edema Respiratory: no respiratory distress, reduced air movement Gastrointestinal: No tenderness, No ascites Skin: warm, normal color Musculoskeletal: pain with ROM, generalized weakness Neurologic: AAOx3 Psychiatric: interacting appropriately, not anxious, not encephalopathic ICD10 Worksheet Patient Problems: Problems Problem Status Onset Psoas abscess Acute Diskitis Acute
[2018-09-30] MEDS: ENOXAPARIN 40 MG/0.4 ML SYR SC SCH (17:31)
[2018-09-30] MEDS: [UNRECOGNIZED DRUG - OTHER] PO SCH (18:40)
[2018-09-30] MEDS: ATORVASTATIN CALCIUM 20 MG TAB PO SCH (20:15)
[2018-09-30] MEDS: DOXAZOSIN MESYLATE 1 MG TAB PO SCH (20:16)
[2018-10-01] MEDS: HYDROCODONE/APAP 5/325 TAB PO PRN ×3 (01:01→12:28)
--- NOTE | 2018-10-01 07:32 | NEUSURGPN ---
Date of Surgery: 09/28/18 Post Op Day: 3 Assessment/Plan: Assessment: POD #3 sp L2-4 lami with resolution of his leg pain. Plan: - PT/OT - Pain management - On cefipime per ID, OR cultures NGTD - DC planning, dc when cleared by ID Discussed with Dr. Luis. Subjective: No lower extremity pain. Objective: Awake. Alert. PERRL. EOMI Facial expression symmetrical Muscle strength full at 5/5 Sensation intact Neurosurgery Physical Exam - Vitals, I&O, Labs I and O 09/30/18 10/01/18 10/02/18 05:59 05:59 05:59 Intake Total 1300 1400 Output Total 360 Balance 940 1400 Intake: Oral (ml) 1200 1300 IV Infused (ml) 100 100 Cefepime HCl 2 gm In Ns 100 100 100 ml @ 200 mls/hr IV Q12HRS SERGIO Rx#:[id number] Output: Urine (ml) 300 Toilet 300 INGRID Drain Output (ml) 60 #1 Diaz Bey 60 Other: Number of Voids Toilet 1 2 Number of Stools Toilet 1 Microbiology 09/28/18 09:25 Gram Stain - Final Neck - Bone 09/28/18 09:25 Gram Stain - Final Vertebral Disc 09/24/18 19:40 Blood Culture - Final Blood Vital Signs Temp Pulse Resp BP Pulse Ox 36.5 C 71 18 122/67 H 97 10/01/18 04:00 10/01/18 04:00 10/01/18 04:00 10/01/18 04:00 10/01/18 04:00 Laboratory Results 09/30/18 05:00 09/29/18 05:35 ICD10 Worksheet Patient Problems: Problems Problem Status Onset Diskitis Acute Psoas abscess Acute
[2018-10-01] MEDS: CEFEPIME HCL 2 GM in NS 100 ML IV SCH (07:46)
[2018-10-01] MEDS: SENNOSIDES/DOCUSATE SODIUM TAB PO SCH (07:46)
[2018-10-01] MEDS: METOPROLOL TARTRATE 50 MG TAB PO SCH (07:48)
[2018-10-01] MEDS: IRBESARTAN 150 MG TAB PO SCH (07:48)
[2018-10-01] MEDS: ENOXAPARIN 40 MG/0.4 ML SYR SC SCH (07:49)
[2018-10-01] MEDS: FUROSEMIDE 20 MG TAB PO SCH (07:49)
[2018-10-01] MEDS: SPIRONOLACTONE 25 MG TAB PO SCH (07:49)
[2018-10-01] MEDS: VERAPAMIL ER 180 MG TAB PO SCH (07:49)
--- NOTE | 2018-10-01 10:33 | PDIAF ---
- Diagnosis Diagnosis: L3-L4 discitis and possible OM Code Status: Full Code - Medication Management Reconstructive Dentist Antibiotics: cefepime 2gm IV q12h Group Home Antibiotic Stop Date: 11/23/18 Discharge Medications: electronically signed and located in the Home Medication List. PICC Care - Routine: Yes - Orders Services needed: Home Care, Registered Nurse, Physical Therapy Home Care Face to Face: I certify that this patient was under my care and that I had the required [id number] encounter meeting the encounter requirements on the discharge day. My findings support the fact that the patient is homebound as defined in Home Care Face to Face Continued: CMS Chapter 7 Medicare Benefits Manual 30.1.1 , The condition of the patient is such that there exists a normal inability to leave home and consequently, leaving home would require a considerable and taxing effort. Diet Recommendation: no restrictions on diet - Labs/Radiology CBC w/diff Date: 10/08/18 (Weekly Monday) CMP Date: 10/08/18 (Weekly Monday) CRP Date: 10/08/18 (Weekly Monday) Call or Fax Lab and Imaging Results to: Sybil David MD [facility] for [facility] at fax [phone] - Follow Up Care Current Providers and Referrals: Sybil David MD [Medical Doctor] - 10/10/18 11:00 am Noel Cedeño MD [Primary Care Provider] - As per Instructions
--- NOTE | 2018-10-01 11:26 | PDHOMEO2F ---
Home Oxygen Face to Face Home Orders: I certify that a physician or a nurse practitioner or physician's lead dental assistant has had a [id number] encounter with this patient on the date of this order due to the diagnosis listed, which relates to the primary reason the patient requires home oxygen. Alternative treatments have been tried, or considered, and deemed ineffective. It is anticipated that supplemental oxygen will result in improvement with treatment. Home oxygen qualifying diagnosis: ILD SpO2 on room air (%): 80 Frequency of home oxygen needed: continuous Home oxygen liters per minute: 2 Home oxygen delivery device: nasal cannula Concentrator: Yes E-tanks for mobility and back up: Yes If ordering portable O2, is the patient mobile in the home?: Yes I certify that, based on these findings, the home oxygen is medically necessary for this patient for the following length of time. Length of time home oxygen needed: 3 months
[2018-10-01 11:27] VITALS: BP 126/68
--- NOTE | 2018-10-01 13:43 | PCMIDPN ---
Assessment/Plan: Assessment/Plan: * Possible L3-4 diskitis/osteomyelitis status post percutaneous and open biopsy : Culture results remain no growth to date. Histopathology is pending from operative specimen. Will continue cefepime in interim with final decision making regarding duration of antibiotics based on further culture results and pathology findings. Plan weekly CBC and CMP on therapy. Patient has scheduled follow-up with Dr. David next week. Side effects of cefepime including risk of allergic reactions, C difficile colitis, and abnormalities in blood count/ renal function/hepatitis as well as risk associated with PICC line discussed with patient and daughter today. 10/01/18 13:37 Subjective: Eager to go home. Complains of postoperative pain. No rash or diarrhea. Objective: Vital Signs Temp Pulse Resp BP Pulse Ox 36.7 C 78 17 126/68 H 93 10/01/18 11:26 10/01/18 11:26 10/01/18 11:26 10/01/18 11:26 10/01/18 11:26 Microbiology 09/28/18 09:25 Gram Stain - Final Neck - Bone 09/28/18 09:25 Gram Stain - Final Vertebral Disc Laboratory Results 09/30/18 05:00 09/29/18 05:35 09/30/18 10/01/18 10/02/18 05:59 05:59 05:59 Intake Total 1300 1400 Output Total 360 Balance 940 1400 ESR 12 MM/HR (0-20) 09/24/18 19:00 C-Reactive Protein 9.4 mg/L (<10.0) 09/24/18 19:00 Cefepime # 4 Operative cultures no growth to date Pathology specimen pending - Physical Exam General Appearance: alert, no apparent distress EENT: No scleral icterus, No thrush, No conjunctival petechiae Respiratory: lungs clear, No respiratory distress Cardiac/Chest: regular rate, rhythm Abdomen: non-tender, No distended Back: other (Incision line without erythema or drainage) - Line/s RUE PICC Lines: No drainage, No erythema ICD10 Worksheet Patient Problems: Problems Problem Status Onset Diskitis Acute Psoas abscess Acute
--- NOTE | 2018-10-01 14:17 | ASMTLACE ---
LACE Length of stay for Answers: 7-13 days current admission Acuity / Level of Answers: Yes Care: Did the patient have an inpatient admission? Comorbidities - select Answers: Any tumor (including all that apply lymphoma or leukemia) Congestive heart failure Coronary Artery Disease Other Notes: HTN; HLD # of Emergency department Answers: 1-2 visits in the last 6 months Score: 16 Date Signed: 10/01/2018 02:16 PM Electronically Signed By:JUAN Davies
--- NOTE | 2018-10-01 14:18 | ASMTCMCOM ---
CM Note CM Note Notes: Pt medically stable for d/c home with [facility]. Pt antibiotics to be delivered at home by 1700 and [facility] to see pt christiano. Date Signed: 10/01/2018 02:18 PM Electronically Signed By:JUAN Davies
--- NOTE | 2018-10-01 15:34 | GDS ---
[f rep st] DISCHARGE SUMMARY DISCHARGE DIAGNOSES: 1. L4-5 diskitis, possible osteomyelitis. 2. Status post L2-3, L3-4 decompression. 3. Prostate cancer. 4. Coronary artery disease. 5. Moderate to severe pulmonary hypertension. 6. Hypertension. 7. Hypokalemia. 8. Congestive heart failure. 9. Daily alcohol consumption. PHYSICAL EXAM: GENERAL: The patient is alert, VITAL SIGNS: Afebrile at 36.7, pulse 78, respiratory rate 17. Blood pressure is 126/68. He is saturating 93% on 2 L, 84% on room air. I have seen and ev aluated the patient on the day of discharge. HOSPITAL COURSE: The patient is an 87-year-old male who presents to the hospital with complaints of back pain. He was evaluated and diagnosed with. 1. L3-4 diskitis with osteomyelitis. During this hospitalization, he had an Interventional Radiolog y aspiration, as well as a bone biopsy. The pathology is pending at this time and aspiration has not grown anything. He will continue IV cefepime until further results are available. 2. L2 through 4 decompression. The patient did have surgical intervention during this hospitalizati on and is stable. 3. Prostate cancer. He is followed by Dr. Cedeño in the outpatient setting. 4. History of coronary artery disease, this is stable. 5. Pulmonary hypertension with obstructive sleep apnea. He will continue his CPAP and follow up out patient with Cardiology. 6. Hypertension, this is stable. 7. Hypokalemia. Replacement has been provided. 8. Congestive heart failure. No evidence of decompensation prior to disposition. 9. Daily alcohol use. The patient has continued this during this hospitalization. DISPOSITION: He will be discharged home with home health care and his daughter. PENDING STUDIES: Include pathology. DISCHARGE MEDICATIONS: Please refer to EMR form. I have provided prescriptions for [place], Robaxin, a nd he will continue on IV cefepime. FOLLOWUP: Followup will be with Dr. Sybil David on October 10, 2018, at 11 a.m. He will also follow up with Dr. Noel Cedeño and Jitendra Luis, his primary care physician. I have discussed the patient's disposition with Mykel Ceron of Infectious Disease. I spent greater than 35 minutes in the care, coordination, and management of this patient's discharge . /[id number]/MODL
--- NOTE | 2018-10-02 10:18 | ASDISCHSUM ---
Discharge Information Plan Status:IV ABX/Infusion Medically Cleared to Leave: Discharge Date:10/01/2018 01:50 PM CM D/C Disposition: ADT D/C [facility] Projected Discharge Date:09/27/2018 11:00 AM Transportation at D/C: Discharge Delay Reason: Follow-Up Date:09/27/2018 11:00 AM Discharge Slot: Final Diagnosis: Placement Information Referral Type:Home Infusion Referral ID:[id number] Provider Name:[facility] Address 1:[address] Address 2: City:[place] Selection Factors: State:[place] Referral Type:*Home Health Care Services Referral ID:[id number] Provider Name:[facility] Address 1:[address] Address 2: City:[place] Selection Factors: State:[place] Patient Contact Information Contact Name:DELIA Relationship:Daughter Address:[address] Work Phone: City:[facility] Phone: State/Zip Code:[place] [address] Email: Financial Information Financial Class:Medicare Primary Plan Desc:MEDICARE INPATIENT Primary Plan Number:[id number] Secondary Plan Desc:MAUREEN/SHERINE SUPPLEMENT Secondary Plan Number:[id number] Assessment Information LACE LACE Length of stay for Answers: 7-13 days current admission Acuity / Level of Answers: Yes Care: Did the patient have an inpatient admission? Comorbidities - select Answers: Any tumor (including all that apply lymphoma or leukemia) Congestive heart failure Coronary Artery Disease Other Notes: HTN; HLD # of Emergency department Answers: 1-2 visits in the last 6 months Score: 16 Date Signed: 10/01/2018 02:16 PM Electronically Signed By:JUAN Davies [facility] CM Progress Note CM Note CM Note Notes: Pt is a 87 y/o man admitted for leg and back pain. Pt has prostate cancer and currently getting radiation on his left leg last month. Therapies have been ordered and awaiting recommendations. Needs are TBD at this time. ID is consulting. CM to follow. Plan: TBD Date Signed: 09/25/2018 11:48 AM Electronically Signed By:KISHOR Berman BC CM Progress Note CM Note CM Note Notes: Pts case discussed w/ Ewelina Messina NP. Therapies have cleared pt to d/c without any needs. Pt will most likely require ivabx at time of d/c. Currently ivabx is currently on hold and awaiting cultures. Referral sent to [facility] and [facility]. [facility] is able to accept. dialia will meet with pt once ivabx is identified. CM to follow. Plan: TBD Date Signed: 09/27/2018 02:58 PM Electronically Signed By:KISHOR Berman [facility] CM Progress Note CM Note CM Note Notes: Pts case discussed w/ Dr. David. Pt will require 6 gram of cefazolin continuous infusion when medically stable. It is uncertain when pt will be medically stable to d/c. Pt will still need a picc line before d/c. CM to follow. Plan: [facility]; RN Date Signed: 09/28/2018 03:35 PM Electronically Signed By:KISHOR Berman BC CM Progress Note CM Note CM Note Notes: Pt medically stable for d/c home with [facility]. Pt antibiotics to be delivered at home by 1700 and [facility] to see pt christiano. Date Signed: 10/01/2018 02:18 PM Electronically Signed By:JUAN Davies Intervention Information Intervention Type:*IM-Signed Date of Service:10/01/2018 12:21 PM Patient Type:Inpatient Staff Member:Sarah Tatum Hours: Discipline: Severity: Comment:
== END 2018-10-01 13:50 | disposition home health service (06) | DRG 478 ==
LOC: F3N 20:29
PROVIDERS: ADMIT Internal Medicine; ATTEND Internal Medicine
PROC: 0S923ZX Drainage of Lumbar Vertebral Disc, Percutaneous Approach, Diagnostic (ICD-10-PCS; 2018-09-25)
PROC: 00NY0ZZ Release Lumbar Spinal Cord, Open Approach (ICD-10-PCS; principal; 2018-09-28 07:15)
PROC: 0SB Lower Joints, Excision (ICD-10-PCS; principal; 2018-09-28 07:15)
PROC: 0QB00ZX Excision of Lumbar Vertebra, Open Approach, Diagnostic (ICD-10-PCS; principal; 2018-09-28 07:15)
PROC: 02HV33Z Insertion of Infusion Device into Superior Vena Cava, Percutaneous Approach (ICD-10-PCS; 2018-10-01)
DX: M46.46 Discitis, unspecified, lumbar region (principal); M46.26 Osteomyelitis of vertebra, lumbar region; I50.30 Unspecified diastolic (congestive) heart failure; M48.062 Spinal stenosis, lumbar region with neurogenic claudication; Z85.46 Personal history of malignant neoplasm of prostate; I25.10 Atherosclerotic heart disease of native coronary artery without angina pectoris; I27.20 Pulmonary hypertension, unspecified; I11.0 Hypertensive heart disease with heart failure; E87.6 Hypokalemia; G47.33 Obstructive sleep apnea (adult) (pediatric); E78.5 Hyperlipidemia, unspecified; Z72.0 Tobacco use; Z72.89 Other problems related to lifestyle
CPT/HCPCS: 86635-90; 97110-GP; 97116-GP; 97161-GP; 97164-GP; 97165-GO; 97168-GO; 97530-GO; 97530-GP; 97535-GO; C1751; J0171; J0690; J0692; J1030; J1100; J1170; J1650; J2250; J2310; J2405; J2704; J2780; J3010

== ENCOUNTER 2018-10-30 05:38 | Inpatient (IN) | payer OTHER, MEDICARE ==
[2018-10-30] MEDS ORDERED: ACETAMINOPHEN 500 MG TAB PO ONE (05:47)
[2018-10-30] MEDS ORDERED: morphINE SR 15 MG TAB PO ONE (05:47)
[2018-10-30] MEDS ORDERED: GABAPENTIN 300 MG CAP PO ONE (05:47)
[2018-10-30] MEDS ORDERED: LR 1,000 ML IV ONE (05:49)
[2018-10-30 06:49] LABS: PLATELET COUNT 257 10^3/uL (150-400)
--- NOTE | 2018-10-30 06:57 | PDANEPAE ---
ANE History of Present Illness Abscess lumbar spine ANE Past Medical History - Cardiovascular History Hx Hypertension: Yes Hx Arrhythmias: No Hx Chest Pain: No Hx Coronary Artery / Peripheral Vascular Disease: Yes Hx CHF / Valvular Disease: Yes Hx Palpitations: No Cardiovascular History Comment: htn. pulm htn. CAD with stent. CHF. hyperlipidemia. followed by [facility] - Pulmonary History Hx COPD: No Hx Asthma/Reactive Airway Disease: No Hx Recent Upper Respiratory Infection: No Hx Oxygen in Use at Home: No Hx Sleep Apnea: No Sleep Apnea Screening Result - Last Documented: Positive Pulmonary History Comment: bipin positive - Neurologic History Hx Cerebrovascular Accident: No Hx Seizures: No Hx Dementia: No - Endocrine History Hx Diabetes: No - Renal History Hx Renal Disorders: No Renal History Comment: hx of prostate ca with prostatectomy - Liver History Hx Hepatic Disorders: No - Neurological & Psychiatric Hx Hx Neurological and Psychiatric Disorders: No - Cancer History Hx Cancer: Yes Cancer History Comment: hx of prostate ca with prostatectomy - Congenital Disorder History Hx Congenital Disorders: No - GI History Hx Gastrointestinal Disorders: No - Other Health History Other Health History: wears glasses. gout - Chronic Pain History Chronic Pain: Yes - Surgical History Prior Surgeries: 09/28/18 l2-4 lami with Janelle. l2-3, 3-4 decompression. cataract surgery in 2017. left ankle ORIF 07/2016. prostate surgery for CA 1991. tonsillectomy 1945. hernia repair. cardiac stent placed ANE Review of Systems Review of Systems: - Exercise capacity METS (RN): 3 METS ANE Patient History - Allergies Allergies/Adverse Reactions: No Known Allergies Allergy (Verified 10/29/18 10:46) - Home Medications Home medications: home medication list seen and reviewed Home Medications: Atorvastatin Calcium [Lipitor 20 mg (*)] 20 mg PO HS 09/24/18 [Last Taken ] Doxazosin Mesylate 2 mg PO HS 09/24/18 [Last Taken 10/29/18] Enzalutamide [Xtandi] 40 mg PO DAILY #0 09/24/18 [Last Taken 10/30/18] Furosemide [Lasix 20 MG (*)] 20 mg PO DAILY 09/24/18 [Last Taken 10/29/18] Irbesartan [Avapro] 300 mg PO HS 09/24/18 [Last Taken 10/29/18] Metoprolol Tartrate [Lopressor 50 mg (*)] 50 mg PO BID 09/24/18 [Last Taken ] Spironolactone [Aldactone 25 MG (*)] 25 mg PO DAILY 09/24/18 [Last Taken ] Verapamil ER [Calan SR/ER 180MG (*)] 180 mg PO BID 09/24/18 [Last Taken 10/30/18 ] Acetaminophen [Tylenol 325mg (*)] 325 mg PO Q6 PRN 10/29/18 [Last Taken 10/29/18 ] Aspirin [Aspirin 81mg (*)] 81 mg PO DAILY 10/29/18 [Last Taken 10/23/18] - NPO status NPO Status: no food or drink >8 hours NPO Since - Liquids (Date): 10/30/18 NPO Since - Liquids (Time): 05:00 NPO Since - Solids (Date): 10/29/18 NPO Since - Solids (Time): 18:00 - Anes Hx Anes Hx: no prior problems - Smoking Hx Smoking Status: Former smoker - Family Anes Hx Family Hx Anesthesia Complications: none ANE Labs/Vital Signs - Labs Result Diagrams: 10/30/18 06:20 - Vital Signs Blood Pressure: 156/86 Heart Rate: 59 Respiratory Rate: 16 O2 Sat (%): 83 Height: 170.18 cm Weight: 95 kg ANE Physical Exam - Airway Mallampati Score: Class 2 Mouth exam: poor dentition - Pulmonary Pulmonary: no respiratory distress, bronchial breath sounds - Cardiovascular Cardiovascular: regular rate and rhythym - ASA Status ASA Status: III ANE Anesthesia Plan Anesthesia Plan: general endotracheal anesthesia
[2018-10-30] MEDS ORDERED: BUPIVACAINE/EPI 0.25% 30 ML SDV ONE (07:00)
[2018-10-30 07:01] LABS: INR 1.03 (0.83-1.16); PROTIME(PATIENT) 13.1 SEC (12.0-15.0)
[2018-10-30] MEDS ORDERED: THROMBIN (BOVINE) 5,000 UNIT VIAL TP ONE (07:01)
[2018-10-30] MEDS ORDERED: BACITRACIN 50,000 UNITS/10 ML SYR IRR ONE (07:01)
[2018-10-30] MEDS ORDERED: DEPO METHYLPREDNISOLONE 40 MG/ML SDV ONE (07:02)
[2018-10-30] MEDS ORDERED: CHLORHEXIDINE GLUC HIBICLENS 118 ML BTL TP ONE (07:03)
[2018-10-30] MEDS ORDERED: SURGIFLO MATRIX KIT WITH THROMBIN 8 ML TP ONE (07:03)
[2018-10-30] MEDS ORDERED: MIDAZOLAM 2 MG/2 ML VIAL IVP ONE (07:05)
[2018-10-30] MEDS ORDERED: MIDAZOLAM 2 MG/2 ML VIAL ONE (07:08)
[2018-10-30] MEDS ORDERED: ROCURONIUM 50 MG/5 ML VIAL ONE (07:15)
[2018-10-30] MEDS ORDERED: LIDOCAINE 2% 5 ML SDV ONE (07:16)
[2018-10-30] MEDS ORDERED: PROPOFOL 200 MG/20 ML VIAL ONE (07:17)
[2018-10-30] MEDS ORDERED: PROPOFOL/EMULSION 500 MG/50 ML BOTTLE IV ONE ×2 (07:17→08:33)
[2018-10-30] MEDS ORDERED: fentaNYL 100 MCG/2 ML INJ ONE ×2 (07:17→08:50)
--- NOTE | 2018-10-30 07:24 | PDHPUP ---
History & Physical Update H&P update statement: This history and physical update is based on an assessment of the patient which was completed after admission or registration (within 24 hours), but prior to the surgery/procedure. H&P update: H&P reviewed & patient examined, changes noted H&P changes: Pain has been improving, but persists. 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
[2018-10-30] MEDS ORDERED: VANCOMYCIN 1 GM VIAL ONE (07:37)
[2018-10-30] MEDS ORDERED: HYDROmorphONE/DILAUDID 1 MG/ML INJ IVP PRN ×2 (07:51→11:04)
[2018-10-30] MEDS ORDERED: ONDANSETRON 4 MG/2 ML VIAL IVP PRN ×2 (07:51→11:04)
[2018-10-30] MEDS ORDERED: fentaNYL 100 MCG/2 ML INJ IVP PRN (07:51)
[2018-10-30] MEDS ORDERED: NALOXONE HCL 0.4 MG/ML INJ IVP PRN (07:51)
[2018-10-30] MEDS ORDERED: ONDANSETRON 4 MG/2 ML VIAL ONE (07:53)
[2018-10-30] MEDS ORDERED: GENTAMICIN SULFATE 80 MG/2 ML VIAL ONE (08:13)
--- NOTE | 2018-10-30 10:43 | POSTOPPROG ---
Post Op Note Date of Operation: 10/30/18 Surgeon: Jitendra Luis Bounty Trapper: None Anesthesiologist: Dr. Fulton Anesthesia: GET(General Endotracheal), Local (Specify) Pre-op Diagnosis: Lumbar epidural abscess Post-op Diagnosis: Lumbar epidural phlegmon Indication: Left leg pain, potential epidural infection Procedure: L3-4 laminectomies for removal epidural phlegmon Findings: Epidural phlegmon Inf/Abcess present in the surg proc area at time of surgery?: Yes Depth: Organ Space EBL: 50-100 Complications: None Bowel Protocol: N/A Clean Closure Performed: N/A Drains: Diaz Bey Specimen(s): L3-4 epidural swab x2 for bacterial cultures; L3-4 epidural tissue for cultures and permanent section histology SOAP Progress Note Assessment/Plan: Assessment: Plan: 10/30/18 10:57 Al is doing well s/p extension of L3-4 laminectomies for removal epidural phlegmon - Admit to shin with q4 hourly VS and neuro checks/CMS - INGRID to bulb suction - ADAT - Activity ad stormy - I spoke to Dr. David who will order empiric abx - pain management - PT/OT Subjective: Low back pain 2/10; no leg pain currently Objective: Vital Signs Temp Pulse Resp BP Pulse Ox 37.0 C 59 L 16 156/86 H 83 L 10/30/18 06:40 10/30/18 07:50 10/30/18 07:50 10/30/18 07:50 10/30/18 07:50 Laboratory Results 10/30/18 06:20 PT 13.1 SEC (12.0-15.0) 10/30/18 06:20 INR 1.03 (0.83-1.16) 10/30/18 06:20 Asleep but arousable Answers questions appropriately; follows commands PERRL, conjugate gaze, face symmetric, hearing grossly intact, no dysarthria LEGER; full strength B PF, EHL, DF, KE, KF, HF SILT BLE Incision dressings c/d/i; INGRID with sanguinous output
[2018-10-30] MEDS ORDERED: MAGNESIUM HYDROXIDE 30 ML UDCUP PO PRN (11:04)
[2018-10-30] MEDS ORDERED: POLYETHYLENE GLYCOL 3350 17 GM PKT PO PRN (11:04)
[2018-10-30] MEDS ORDERED: METHOCARBAMOL 750 MG TAB PO PRN (11:04)
[2018-10-30] MEDS ORDERED: oxyCODONE IR 5 MG TAB PO PRN (11:04)
[2018-10-30] MEDS ORDERED: ONDANSETRON DISINTEGRATING 4 MG TAB PO PRN (11:04)
[2018-10-30] MEDS ORDERED: LACTULOSE 20 GM/30 ML UDCUP PO PRN (11:04)
[2018-10-30] MEDS ORDERED: diphenhydrAMINE 25 MG CAP PO PRN (11:04)
[2018-10-30] MEDS ORDERED: BISACODYL 10 MG SUPP PR PRN (11:04)
[2018-10-30] MEDS ORDERED: NS 1,000 ML IV SCH (11:15)
[2018-10-30] MEDS ORDERED: CEFEPIME HCL 2 GM in NS 100 ML IV SCH (11:30)
--- NOTE | 2018-10-30 11:47 | PDMN ---
Medical Necessity Medical necessity: [facility] IP only surgery; cpt 86890 L3/4 Laminectomy for evacuation of abscess IP
[2018-10-30] MEDS: ACETAMINOPHEN 500 MG TAB PO SCH ×2 (13:29→22:15)
[2018-10-30] MEDS: CEFEPIME HCL 2 GM in NS 100 ML IV SCH ×2 (13:30→22:20)
--- NOTE | 2018-10-30 14:42 | PCMIDPN ---
Assessment/Plan: Back pain with radiologic change c/w OM/discitis of L3/4 but all cultures negative. Developed L leg pain post op with epidural fluid collection and returned to OR for hopeful relief of back pain and ongoing diagnostics --Gram stains from OR all negative today --ordered broad range PCR testing from [facility] --add on Brucella serology --empiric cefepime for now Subjective: 87 year old /White male well known to me with PMHx of CAD, HTN, malignant melanoma, obstructive sleep apnea, osteoarthritis, prostate cancer current tx with enzalutamide, cataracts tx with surgery, who presents for follow up of diskitis. Pt with recent hospitalization from 09/24/18 to 10/02/18 for L3-L4 discitis and possible osteomyelitis s/p percutaneous and open biopsy. On 09/25/18 underwent fluoroscopic guided aspiration of L3-L4 with negative cultures. On 09/28/18, pt underwent bilateral hemilaminectomies for decompression of the spinal canal with medial facetectomies and bilateral neural foraminotomies at L2-3 and L3-4 and open biopsy of L3-4 disk and L3 and L4 vertebral bodies and all of these cultures were also negative. Patient rec'd cefepime from 09/28/18 through 10/17/18 at which time they were stopped for negative cultures. Post op he developed persistent L leg pain and repeat MRI showed epidural fluid collection, today he underwent L3-4 laminectomies for removal epidural phlegmon and intra-op finding did not show purulence and prior wound was well healed per communication with neurosurg Today, patient is very sleepy post op and unable to give history regarding pain. Objective: Vital Signs Temp Pulse Resp BP Pulse Ox 36.3 C 56 L 16 134/71 H 93 10/30/18 14:00 10/30/18 14:00 10/30/18 14:00 10/30/18 14:00 10/30/18 14:00 Microbiology 10/30/18 08:55 Gram Stain - Final Other - Tissue 10/30/18 08:55 Gram Stain - Final Other - Eswab 10/30/18 08:42 Gram Stain - Final Other - Eswab Laboratory Results 10/30/18 06:20 10/29/18 10/30/18 10/31/18 05:59 05:59 05:59 Intake Total 1000 Balance 1000 ICD10 Worksheet Patient Problems: Problems Problem Status Onset Diskitis Acute Psoas abscess Acute
--- NOTE | 2018-10-30 19:58 | POSTANESTH ---
Post Anesthetic Evaluation Cardiovascular Status: Similar to Pre-Op Cond Respiratory Status: Similar to Pre-op Cond. Level of Consciousness/Mental Status: Alert and Oriented Pain Control: Adequate, Prn Tx Ordered Nausea/Vomiting Control: Adequate, Prn Tx Ordered Complications Possibly Related to Anesthesia: None Noted (Pt seen at 11:40 and doing well)
[2018-10-30] MEDS: DOXAZOSIN MESYLATE 1 MG TAB PO SCH (20:18)
[2018-10-30] MEDS: FAMOTIDINE 20 MG TAB PO SCH (20:18)
[2018-10-30] MEDS: ATORVASTATIN CALCIUM 20 MG TAB PO SCH (20:18)
[2018-10-30] MEDS: SENNOSIDES/DOCUSATE SODIUM TAB PO SCH (20:18)
[2018-10-30] MEDS: VERAPAMIL ER 180 MG TAB PO SCH (20:18)
[2018-10-30] MEDS: METOPROLOL TARTRATE 50 MG TAB PO SCH (20:21)
[2018-10-31 05:13] LABS: PLATELET COUNT 207 10^3/uL (150-400)
--- NOTE | 2018-10-31 05:35 | CPEKG ---
Test Reason : OPEN Blood Pressure : / mmHG Vent. Rate : 057 BPM Atrial Rate : 057 BPM P-R Int : 151 ms QRS Dur : 109 ms QT Int : 487 ms P-R-T Axes : -14 -28 038 degrees QTc Int : 475 ms Sinus rhythm Atrial premature complex Nonspecific inferolateral T wave flattening Borderline left axis deviation Borderline prolonged QT interval Compared with 06/01/2015 T abnl now present Confirmed by Lin Jarrell ([id number]) on 10/31/2018 5:35:22 AM Referred By: Jitendra Luis Confirmed By:Lin Jarrell
[2018-10-31] MEDS: CEFEPIME HCL 2 GM in NS 100 ML IV SCH (06:04)
[2018-10-31] MEDS: ACETAMINOPHEN 500 MG TAB PO SCH ×3 (06:46→21:16)
--- NOTE | 2018-10-31 07:11 | NEUSURGPN ---
Date of Surgery: 10/30/18 Post Op Day: 1 Assessment/Plan: Assessment: 87 yo male that is s/p extension of L3-4 laminectomies for removal epidural phlegmon POD #1 Plan: -s/p L3/4 lami for washout and cultures -cultures pending -q4 hourly VS and neuro checks/CMS per Dr Luis -INGRID to bulb suction-continue (50cc out) -ADAT -Activity ad stormy -Dr Luis spoke with Dr. David who ordered empiric abx -continue pain management -PT/OT-CPM -call with any questions or concerns -pt understands and agrees Subjective: Awake and alert. NAD. Eating/drinking. No f/c/n/v/d. Objective: AAO x 3, PERRLA/EOMI no droop CN 2-12 grossly intact +lt touch 5/5 BUE/BLE = CDI INGRID in place Neuro Check Frequency: per routine Urinary Catheter in Place: No - Physician Discussed Patient with Dr.: Other (Janelle) Neurosurgery Physical Exam - Vitals, I&O, Labs I and O 10/30/18 10/31/18 11/01/18 05:59 05:59 05:59 Intake Total 2555 Output Total 51 50 Balance 2504 -50 Weight 95 kg 95 kg Intake: Oral (ml) 1000 IV Intake (ml) 1000 IV Infused (ml) 555 Cefepime HCl 2 gm In Ns 205 100 ml @ 200 mls/hr IV Q8HRS SERGIO Rx#:[id number] Ns 1,000 ml @ 50 mls/hr 350 IV CONT SERGIO Rx#: [id number] Output: Urine (ml) 50 Urinal 50 INGRID Drain Output (ml) 1 50 Left Posterior Back 1 50 Diaz Bey Other: Number of Voids Toilet 1 Bladder Scan Volume (ml) Urinal 108 Post Void Residual Scan Volume (ml) Toilet 316 Urinal 330 Microbiology 10/30/18 08:55 Mycobacterial Smear (MELANIE) - Final Other - Tissue 10/30/18 08:55 Gram Stain - Final Other - Tissue 10/30/18 08:55 Gram Stain - Final Other - Eswab 10/30/18 08:42 Gram Stain - Final Other - Eswab Vital Signs Temp Pulse Resp BP Pulse Ox 36.9 C 72 22 H 143/70 H 94 10/31/18 02:48 10/31/18 02:48 10/31/18 02:48 10/31/18 02:48 10/31/18 02:48 Laboratory Results 10/31/18 04:17 10/31/18 04:17 ICD10 Worksheet Patient Problems: Problems Problem Status Onset Diskitis Acute Psoas abscess Acute
[2018-10-31] MEDS: FAMOTIDINE 20 MG TAB PO SCH ×2 (08:30→20:45)
[2018-10-31] MEDS: SENNOSIDES/DOCUSATE SODIUM TAB PO SCH ×2 (08:30→20:48)
[2018-10-31] MEDS: POTASSIUM CL 20 MEQ TAB PO SCH (08:34)
[2018-10-31] MEDS ORDERED: (Enzalutamide [Xtandi] 40 MG) PO SCH (09:00)
[2018-10-31] MEDS: FUROSEMIDE 20 MG TAB PO SCH (10:20)
[2018-10-31] MEDS: METOPROLOL TARTRATE 50 MG TAB PO SCH ×2 (10:20→20:47)
[2018-10-31] MEDS: SPIRONOLACTONE 25 MG TAB PO SCH (10:21)
[2018-10-31] MEDS: VERAPAMIL ER 180 MG TAB PO SCH ×2 (10:21→20:48)
[2018-10-31] MEDS: (Enzalutamide [Xtandi] 40 MG) PO SCH (10:22)
[2018-10-31] MEDS: IRBESARTAN 150 MG TAB PO SCH ×2 (10:24→20:45)
--- NOTE | 2018-10-31 10:24 | PCMIDPN ---
Assessment/Plan: #Back pain with radiologic change c/w OM/discitis of L3/4 but all cultures negative. Developed L leg pain post op with epidural fluid collection now s/p L3-4 laminectomies for removal epidural phlegmon. Overall data seems to be leaning towards less like infectious but unclear mechanism to process therefore will continue to evaluate for infection. --Gram stains from OR all negative today --ordered broad range PCR testing from [facility] and surgical team sent path again --added on Brucella serology --dc cefepime, dc home off antibiotics and monitor cultures. Discussed risk and benefits w daughter and granddaughter at bedside --I will continue to monitor cx, patient to f/u w me November 14 at 11am or earlier for worsening sx #Prostate CA on androgen receptor antagonist. Meds Cefepime 2gm IV q8h Subjective: patient feeling well, a little "weak in the knees" which he attributes to anesthesia Denies pain Objective: Vital Signs Temp Pulse Resp BP Pulse Ox 36.7 C 70 16 101/50 L 90 L 10/31/18 07:55 10/31/18 10:20 10/31/18 07:55 10/31/18 10:21 10/31/18 07:55 Microbiology 10/30/18 08:55 Gram Stain - Final Other - Eswab 10/30/18 08:55 Gram Stain - Final Other - Tissue 10/30/18 08:42 Gram Stain - Final Other - Eswab 10/30/18 08:55 Mycobacterial Smear (MELANIE) - Final Other - Tissue Laboratory Results 10/31/18 04:17 10/31/18 04:17 10/30/18 10/31/18 11/01/18 05:59 05:59 05:59 Intake Total 2555 Output Total 51 475 Balance 2504 -475 - Physical Exam General Appearance: alert, no apparent distress, obese, non-toxic EENT: No scleral icterus Respiratory: lungs clear, No accessory muscle use Cardiac/Chest: regular rate, rhythm, systolic murmur Extremities: other (moving B LE equally), No pedal edema Back: other (dressing in place; INGRID drain w serosang fluid) Neuro/Psych: alert, normal mood/affect, oriented x 3 - Time Spent With Patient Time Spent with Patient: greater than 35 minutes Time Spent with Patient: Greater than 35 minutes spent on this patients care, greater than 50% of time spent counseling, educating, and coordinating care regarding the above mentioned plan. ICD10 Worksheet Patient Problems: Problems Problem Status Onset Diskitis Acute Psoas abscess Acute
--- NOTE | 2018-10-31 16:08 | ASMTCMCOM ---
CM Note CM Note Notes: Pt s/p L3/4 washout for washout and cultures. ID consulting, note indicate d/c cefepime and d/c off antibiotics and monitor cultures. OT rec home/C/24hr supervision/SNF PT rec [facility] Pt resides alone and has a lot of family support. Spoke with pt and son Umesh about d/c planning, pt wants home with [facility] OT/PT. Pt does not want to consider SNF. [facility] with [facility] alerted and reports pt was just closed for RN/PT 10/24/18, they can open pt again. D/c plan of care: Home with [facility] PT/OT Date Signed: 10/31/2018 04:07 PM Electronically Signed By:JUAN Davies
[2018-10-31] MEDS: DOXAZOSIN MESYLATE 1 MG TAB PO SCH (20:47)
[2018-10-31] MEDS: ATORVASTATIN CALCIUM 20 MG TAB PO SCH (20:48)
[2018-11-01] MEDS: ACETAMINOPHEN 500 MG TAB PO SCH ×2 (06:04→13:58)
--- NOTE | 2018-11-01 07:17 | NEUSURGPN ---
Date of Surgery: 10/30/18 Post Op Day: 2 Assessment/Plan: Assessment: 87 yo male that is s/p extension of L3-4 laminectomies for removal epidural phlegmon POD #2 Plan: -s/p L3/4 lami for washout and cultures -cultures pending-ID to follow up on this/NGTD -q4 hourly VS and neuro checks/CMS per Dr Luis -INGRID to bulb suction-continue (minimal out)-Dr Luis would like this removed -ADAT -Activity ad stormy -Dr Luis spoke with Dr. David who ordered empiric abx initially-this has stopped -continue pain management -PT/OT-CPM -call with any questions or concerns -pt understands and agrees -plan for dc later today if passes therapies Subjective: Awake and alert. NAD. Eating/drinking and voiding. No f/c/n/v/d. No chavarria/neck/ chest/abd or gu complaints. Objective: AAO x 3, PERRLA/EOMI no droop CN 2-12 grossly intact +lt touch 5/5 BUE/BLE = CDI INGRID in place Neuro Check Frequency: per routine Urinary Catheter in Place: No - Physician Discussed Patient with Dr.: Other (Janelle) Neurosurgery Physical Exam - Vitals, I&O, Labs I and O 10/31/18 11/01/18 11/02/18 05:59 05:59 05:59 Intake Total 2555 1150 Output Total 51 1585 1 Balance 2504 -435 -1 Weight 95 kg Intake: Oral (ml) 1000 1150 IV Intake (ml) 1000 IV Infused (ml) 555 Cefepime HCl 2 gm In Ns 205 100 ml @ 200 mls/hr IV Q8HRS SERGIO Rx#:[id number] Ns 1,000 ml @ 50 mls/hr 350 IV CONT SERGIO Rx#: [id number] Output: Urine (ml) 50 1525 Catheter 425 Toilet 50 Urinal 50 1050 INGRID Drain Output (ml) 1 60 1 Left Posterior Back 1 60 1 Diaz Bey Other: Intake Quantity Yes Sufficient Output Comment Catheter straight cath Number of Voids Toilet 1 1 Urinal 1 Bladder Scan Volume (ml) Urinal 108 493 Post Void Residual Scan Volume (ml) Toilet 316 Urinal 330 0 Microbiology 10/30/18 08:55 Gram Stain - Final Other - Eswab 10/30/18 08:55 Gram Stain - Final Other - Tissue 10/30/18 08:42 Gram Stain - Final Other - Eswab Vital Signs Temp Pulse Resp BP Pulse Ox 36.8 C 66 16 136/56 H 93 11/01/18 00:00 11/01/18 00:00 11/01/18 00:00 11/01/18 00:00 11/01/18 00:00 Laboratory Results 10/31/18 04:17 10/31/18 04:17 ICD10 Worksheet Patient Problems: Problems Problem Status Onset Diskitis Acute Psoas abscess Acute
[2018-11-01] MEDS: FUROSEMIDE 20 MG TAB PO SCH (07:55)
[2018-11-01] MEDS: FAMOTIDINE 20 MG TAB PO SCH (07:56)
[2018-11-01] MEDS: VERAPAMIL ER 180 MG TAB PO SCH (07:56)
[2018-11-01] MEDS: POTASSIUM CL 20 MEQ TAB PO SCH (07:56)
[2018-11-01] MEDS: SENNOSIDES/DOCUSATE SODIUM TAB PO SCH (07:56)
[2018-11-01] MEDS: METOPROLOL TARTRATE 50 MG TAB PO SCH (07:56)
[2018-11-01] MEDS: SPIRONOLACTONE 25 MG TAB PO SCH (07:57)
[2018-11-01] MEDS: (Enzalutamide [Xtandi] 40 MG) PO SCH (07:57)
--- NOTE | 2018-11-01 10:34 | PCMIDPN ---
Assessment/Plan: #Back pain with radiologic change c/w OM/discitis of L3/4 but all cultures negative. Developed L leg pain post op with epidural fluid collection now s/p L3-4 laminectomies for removal epidural phlegmon. Overall data seems to be leaning towards less like infectious but unclear mechanism to process therefore will continue to evaluate for infection. Incision w/o abn today --f/u w me November 14 at 11am or earlier for worsening sx --DC off antibiotics #Prostate CA on androgen receptor antagonist. patient examined with nursing Subjective: L leg pain 50% improved. Incisional pain controlled with Tylenol Objective: Vital Signs Temp Pulse Resp BP Pulse Ox 36.8 C 71 18 173/90 H 97 11/01/18 07:48 11/01/18 07:56 11/01/18 07:48 11/01/18 07:56 11/01/18 07:48 Microbiology 10/30/18 08:55 Gram Stain - Final Other - Eswab 10/30/18 08:55 Gram Stain - Final Other - Tissue 10/30/18 08:42 Gram Stain - Final Other - Eswab Laboratory Results 10/31/18 04:17 11/01/18 08:34 10/31/18 11/01/18 11/02/18 05:59 05:59 05:59 Intake Total 2555 1150 Output Total 51 1585 76 Balance 2504 -435 -76 - Physical Exam General Appearance: alert, no apparent distress Respiratory: No accessory muscle use Back: other (incision w stitches no erythema, no drainage) Skin: No rash Neuro/Psych: alert, normal mood/affect, oriented x 3 - Time Spent With Patient Time Spent with Patient: greater than 25 minutes Time Spent with Patient: Greater than 25 minutes spent on this patients care, greater than 50% of time spent counseling, educating, and coordinating care regarding the above mentioned plan. ICD10 Worksheet Patient Problems: Problems Problem Status Onset Diskitis Acute Psoas abscess Acute
[2018-11-01 12:53] VITALS: BP 170/81
--- NOTE | 2018-11-01 13:04 | PDIAF ---
- Diagnosis Diagnosis: lumbar stenosis/lumbago Code Status: Full Code - Medication Management Concrete Plant Laborer Antibiotics: see ID Discharge Medications: electronically signed and located in the Home Medication List. PICC Care - Routine: N/A - Orders Services needed: Home Care, Registered Nurse, Physical Therapy, Occupational Therapy Home Care Face to Face: I certify that this patient was under my care and that I had the required [id number] encounter meeting the encounter requirements on the discharge day. My findings support the fact that the patient is homebound as defined in Home Care Face to Face Continued: CMS Chapter 7 Medicare Benefits Manual 30.1.1 , The condition of the patient is such that there exists a normal inability to leave home and consequently, leaving home would require a considerable and taxing effort. Diet Recommendation: no restrictions on diet Diet Texture: Regular Texture Diet Tube feeding: n/a Aly: Not applicable Additional Instructions: -ok to start Aspirin in 3 days -follow up with Dr David for a recheck -call with any questions or concerns -take medications as directed -see Dr Luis in 2-3 weeks for a post op check - Follow Up Care Current Providers and Referrals: Sybil David MD [Medical Doctor] - 11/14/18 11:00 am (follow up in 1-2 weeks) Maggie Bennett MD [Primary Care Provider] - Jitendra Luis MD [Medical Doctor] - (follow up in 2-3 weeks)
--- NOTE | 2018-11-01 13:08 | ASMTLACE ---
LACE Length of stay for Answers: 2 days current admission Acuity / Level of Answers: Yes Care: Did the patient have an inpatient admission? Comorbidities - select Answers: Congestive heart failure all that apply Coronary Artery Disease Opioid dependence / Chronic pain Other Notes: HTN; HLD # of Emergency department Answers: 1-2 visits in the last 6 months Score: 15 Date Signed: 11/01/2018 01:08 PM Electronically Signed By:Edith Lazcano RN
--- NOTE | 2018-11-02 09:16 | GOP ---
[f rep st] OPERATIVE REPORT DATE OF OPERATION: 10/30/2018 PREOPERATIVE DIAGNOSIS: Lumbar epidural abscess. POSTOPERATIVE DIAGNOSIS: Lumbar epidural phlegmon. OPERATION PERFORMED: Revision of L3-4 laminectomy with removal of epidural phlegmon tissue (CPT code 35832). SURGEON: Jitendra Luis M.D. PRIME MINISTER: None. ANESTHESIA: General endotracheal and local anesthesia. INDICATIONS: The patient is an 87-year-old gentleman who presented over one month ago with back and left leg pain. 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 He underwent L2-3 and L3-4 decompressive laminectomies, as well as L3- 4 disk and L3 and L4 vertebral body biopsies on 09/28/2018. Postoperatively, his leg pain improved. Cultures never grew any organisms. However, a few days later, his leg pain returned and has been persistent. 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 He remained neurologically intact on exam. Given his symptoms and imaging findings, and lack of diagnosis from the first surgery, it was recommended that he undergo removal of this tissue for both symptomatic relief, and for repeat cultures. He was agreeable with this plan. DESCRIPTION OF PROCEDURE: Prior to surgery, all the indications, risks, benefits, alternatives, and expected recuperation were discussed with the patient and his family. Appropriate consent forms were signed. The patient was marked in the preoperative area. He was then brought to the operating room where general anesthesia was induced, and he was intubated without complication. All necessary lines and neuromonitoring electrodes were placed. He was then turned into prone position on the Iván frame. All pressure points were appropriately padded. His low back was prepped and draped in the usual sterile fashion. A timeout was done per protocol. Approximately 20 mL of 0.25% Marcaine with epinephrine were injected along the planned incision for local anesthesia and vasoconstriction. The prior lumbar incision overlying L2 through L4 was reopened using hemostats and scissors to cut the sutures. The wound was then extended deeper by cutting each subsequent layer of sutures until the lumbar fascia was opened. There was scar tissue adherent to the lumbar spinous processes already. Therefore, the Bovie cautery was used to remove paraspinal muscles and scar tissue in the subperiosteal planes on both sides of the L2 through L4 spinous processes, and residual laminae. Cerebellar retractors were used to maintain this exposure. At this point an instrument was placed in the L3-4 laminar defect, and C-arm fluoroscopy was used to verify the appropriate level. There was scar tissue also adherent to the residual lamina at L3-4 and L2-3. First on the left side at L3-4, this was carefully removed with curettes and blunt dissection until a plane was developed. Kerrison rongeurs were used to extend the left L3 laminectomy slightly laterally. The superior portion of the left L4 lamina was also removed with Kerrison rongeurs to expose the spinal canal more caudally. Once there was good exposure of the thecal sac in this area, it was gently retracted medially. Notably, there was no purulent fluid. Culture swabs x2 were taken in the epidural space here and sent for routine bacterial cultures. There was noted to be friable soft tissue ventral to the thecal sac in this area, consistent with the location on the MRI of suspected epidural abscess versus phlegmon. This soft tissue was removed in piecemeal fashion with the pituitary forceps and was sent as a specimen for cultures and pathology. Adequate decompression of the thecal sac was achieved here. Attention was then turned to the left L2-3 lamina defect. Again, the scar tissue was carefully dissected with curettes and blunt dissection from the residual lamina. No further laminectomy was performed at this level. Once there was adequate exposure, the lateral ventral aspect of the spinal canal was explored and more friable tissue similar to that found at L3-4 was discovered. It was removed again in piecemeal fashion with pituitary forceps, and this was also added to the soft tissue specimen. This was sent for routine bacterial, fungal, AFB cultures, and pathologic examination. Once all of this epidural friable lesion was removed, hemostasis was achieved with Surgiflo and cottonoids. The entire wound was then irrigated using the pulse lavage device with 3 L of irrigation containing Bacitracin and gentamicin. Once completely irrigated, final hemostasis of the paraspinal muscles was achieved with Bipolar cautery. Two grams of dry vancomycin powder were sprinkled in the wound bed. The cottonoids were removed and attention was turned to closure. A 10-[place] round PVC Diaz-Bey drain was placed in the subfascial space and brought out through a separate stab incision to the left inferior aspect of the wound. The paraspinal muscles were reapproximated with interrupted 0 Vicryl sutures. The lumbar fascia was then closed with interrupted 0 Vicryl sutures. The subcutaneous layer was closed with interrupted, inverted 2-0 Vicryl sutures, and finally a 3-0 nylon running suture was used to close the skin. The drain was anchored with a 2-0 nylon suture to the skin, and the bulb was attached and suction was applied. An additional 10 mL of 0.25% Marcaine with epinephrine were injected for local anesthesia. Sterile dressings including Xeroform, 4 x 4 gauze pads, and tape were used to cover the incision. The drapes and C-arm were removed. The patient was then turned to supine position on the bed, and care was returned to Anesthesia to evaluate for extubation. Notably, there were no changes from baseline on somatosensory evoked potential monitoring, and there was no EMG activity throughout the case. ESTIMATED BLOOD LOSS: 50 mL. COMPLICATIONS: None apparent. DRAINS: Subfascial 10-[place] round PVC Diaz-Bey drain. SPECIMENS: 1. L3-4 epidural swabs x2 for routine bacterial cultures. 2. Lumbar epidural tissue for routine bacterial, fungal, and AFB cultures, as well as permanent section histology. DISPOSITION: It is expected the patient will be extubated in the operating room and then transferred to post-anesthesia care unit for further recovery. /[id number]/[id number] MTDD
[2018-11-02 13:08] LABS: BRUCELLA AB IGM Negative (Negative); BRUCELLA ANTIBODY IGG Negative (Negative); INTERPRETATION See Comments
== END 2018-11-01 14:37 | disposition home health service (06) | DRG 856 ==
LOC: F3N 05:38
PROVIDERS: ADMIT Neurological Surgery; ATTEND Neurological Surgery
DX: T81.49XA Infection following a procedure, other surgical site, initial encounter (principal); G06.1 Intraspinal abscess and granuloma; G89.18 Other acute postprocedural pain; I25.10 Atherosclerotic heart disease of native coronary artery without angina pectoris; I11.0 Hypertensive heart disease with heart failure; I50.9 Heart failure, unspecified; G47.33 Obstructive sleep apnea (adult) (pediatric); I27.20 Pulmonary hypertension, unspecified; E78.5 Hyperlipidemia, unspecified; Z85.46 Personal history of malignant neoplasm of prostate; Z87.891 Personal history of nicotine dependence
CPT/HCPCS: 86622-90; 97116-GP; 97162-GP; 97165-GO; 97535-GO; J0692; J1030; J1580; J2250; J2405; J2704; J3010; J3370